=== PATIENT | female | born 1950 | race Caucasian/White ===

== ENCOUNTER 2023-04-02 06:55 | Observation (INO) ==
--- NOTE | 2023-03-09 15:41 | PAT Medication Instructions ---
Medication Instructions Date of Service March 09, 2023 Home Medications Lactobacillus acidophilus 10 billion cell capsule (Probiotic) 10,000 mmu cells PO QAM acetaminophen 650 mg tablet,extended release 650 mg PO Q8H calcium 500 mg tablet 500 mg PO QAM cholecalciferol (vitamin D3) 25 mcg (1,000 unit) tablet (Vitamin D3) 25 mcg PO QAM coQ10 (ubiquinol) 100 mg capsule 100 mg PO QAM fexofenadine 180 mg tablet 180 mg PO DAILY PRN gabapentin 100 mg capsule 100 mg PO UD levothyroxine 100 mcg tablet 100 mcg PO QAM meloxicam 15 mg tablet 15 mg PO QAM multivitamin 1 tab PO QAM omega-3 fatty acids 1,000 mg PO QAM omeprazole 40 mg capsule,delayed release 40 mg PO QAM pravastatin 20 mg tablet 20 mg PO HS vitamin A-vitamin C-vit E-min tablet 1 tab PO QPM Continue as directed gabapentin 100 mg capsule 100 mg PO UD ASK your surgeon for instructions meloxicam 15 mg tablet 15 mg PO QAM STOP taking 2 weeks before surgery (or as soon as possible if surgery is within 2 weeks) coQ10 (ubiquinol) 100 mg capsule 100 mg PO QAM omega-3 fatty acids 1,000 mg PO QAM vitamin A-vitamin C-vit E-min tablet 1 tab PO QPM DO NOT take the morning of surgery Lactobacillus acidophilus 10 billion cell capsule (Probiotic) 10,000 mmu cells PO QAM calcium 500 mg tablet 500 mg PO QAM cholecalciferol (vitamin D3) 25 mcg (1,000 unit) tablet (Vitamin D3) 25 mcg PO QAM fexofenadine 180 mg tablet 180 mg PO DAILY PRN multivitamin 1 tab PO QAM Take morning of surgery With a small sip of water, OTHERWISE NOTHING TO EAT OR DRINK AFTER MIDNIGHT: acetaminophen 650 mg tablet,extended release 650 mg PO Q8H(if needed) levothyroxine 100 mcg tablet 100 mcg PO QAM omeprazole 40 mg capsule,delayed release 40 mg PO QAM Take evening before surgery acetaminophen 650 mg tablet,extended release 650 mg PO Q8H(if needed) pravastatin 20 mg tablet 20 mg PO HS Other Notes If you have any questions please call us at [phone] or [phone] or [phone] or [phone]
--- NOTE | 2023-03-17 09:28 | Anesthesiology Consultation ---
Date of Service March 17, 2023 Assessment & Plan (1) Encounter for pre-operative examination: - COVID screening: Per assessment on 03/17: No known COVID-19 positive contacts or current COVID-19 related symptoms. Travel screen negative. Patient vaccinated. At surgeon discretion if preop Covid testing being done. * - Outpatient joint assessment: Pt currently scheduled for inpatient pathway. If surgeon requests review for outpatient joint pathway, patient is an acceptable candidate for outpatient joint program from anesthesia standpoint pending PCP EKG response/preop evaluation. - Preop EKG: iLBBB noted on preop EKG performed 03/17/23. Will need to write note to PCP. Awaiting PCP EKG response + surgeon-ordered preop evaluation (Dr. Cris Lang [facility], appt 03/18). Chart Review Chart Review: Patient seen in Pre Admission Testing Teaching & Discussion Pre-Anesthesia Teaching/Discussion Notes: Instructed NPO after midnight before surgery,except medications with 15 cc of water. Medication instructions provide d according to the PAT guidelines. History Surgery Operation Date: 04/02/23 07:00 Proposed Procedures p Right Total Hip Arthroplasty - Chacho Simeon MD Height/Weight Height: 5 ft 7 in Weight: 73.9 kg Allergies Allergy/AdvReac Type Severity Reaction Status Date / Time clindamycin Allergy Severe Chest Pain Verified 03/05/23 10:58 Medications Home Medications Medication Instructions Recorded Confirmed Last Taken Lactobacillus acidophilus 10 10,000 mmu cells PO QAM 03/05/23 03/05/23 Unknown billion cell capsule (Probiotic) acetaminophen 650 mg 650 mg PO Q8H 03/05/23 03/05/23 Unknown tablet,extended release calcium 500 mg tablet 500 mg PO QAM 03/05/23 03/05/23 Unknown cholecalciferol (vitamin D3) 25 25 mcg PO QAM 03/05/23 03/05/23 Unknown mcg (1,000 unit) tablet (Vitamin D3) coQ10 (ubiquinol) 100 mg capsule 100 mg PO QAM 03/05/23 03/05/23 Unknown fexofenadine 180 mg tablet 180 mg PO DAILY PRN Allergy 03/05/23 03/05/23 Unknown Symptoms gabapentin 100 mg capsule 100 mg PO UD 03/05/23 03/05/23 Unknown levothyroxine 100 mcg tablet 100 mcg PO QAM 03/05/23 03/05/23 Unknown meloxicam 15 mg tablet 15 mg PO QAM 03/05/23 03/05/23 Unknown multivitamin 1 tab PO QAM 03/05/23 03/05/23 Unknown omega-3 fatty acids 1,000 mg PO QAM 03/05/23 03/05/23 Unknown omeprazole 40 mg capsule,delayed 40 mg PO QAM 03/05/23 03/05/23 Unknown release pravastatin 20 mg tablet 20 mg PO HS 03/05/23 03/05/23 Unknown vitamin A-vitamin C-vit E-min 1 tab PO QPM 03/05/23 03/05/23 Unknown tablet Past Medical History Medical History GERD (gastroesophageal reflux disease) History of COVID-2019- "resolved" Hyperlipidemia Hypothyroidism Macular pucker Osteoarthritis Exercise / Class Metabolic Activity II 4-5 Yardwork/Stairs/Walk up hill (one FS (no CP, no SOB)) Past Family History Family History Other No family history of adverse response to anesthesia Past Surgical History Surgical History History of cataract surgery R/L History of section x2 History of colonoscopy History of total knee replacement left Past Anesthesia History No Hx of Anesthesia Complications and No Family Hx of Anesthesia Complications History of PONV No Hx of PONV and Hx of Motion Sickness Social History Smoking Status: Never smoker Do You Dip or Chew Tobacco: No Hx Alcohol Use: Yes Alcohol type: wine alcohol intake frequency: a few times a month substance use type: does not use Review of Systems Patient denies chest pain, shortness of breath, dyspnea on exertion, fever, chills, cough, wheezing, palpitations. Physical Exam Vital Signs VITALS BP 152/81 P 57 TEMP 97.6 SP02 98%RA RESP 16 PHYSICAL Full cervical extension range of motion. Full TMJ range of motion. TMD 3 finger breaths Mallampati Score 2 Dentition: intact, + crowns (molars) Lungs: clear throughout to auscultation Cardiac: regular rate and rhythm, no murmurs noted Spine: normal Carotid arteries: negative bruit Extremities: no LE edema Lab Results Anesthesia Preop Results Results Anesthesia Widget: WBC 5.96 K/ul (4.8-10.8) 03/17/23 Hgb 13.8 g/dl (12.0-16.0) 03/17/23 Hct 40.4 % (37.0-47.0) 03/17/23 Plt 195 K/uL (130-400) 03/17/23 Na 140 mmol/L (136-145) 03/17/23 K 4.6 mmol/L (3.5-5.1) 03/17/23 Cl 106 mmol/L (98-107) 03/17/23 CO2 28 mmol/L (21-32) 03/17/23 BUN 19 mg/dl (6-23) 03/17/23 Creat 0.64 mg/dl (0.6-1.2) 03/17/23 Glucose Level 91 mg/dl (70-99(Fasting)) 03/17/23 PT 11.0 Seconds (9.0-12.0) 03/17/23 PTT 23.5 Seconds (21.0-31.0) 03/17/23 INR 1.0 (0.9-1.1) 03/17/23 Urine Color Dark Yellow 03/17/23 Urine Appearance Clear (Clear) 03/17/23 Urine pH 5.0 (4.5-7.5) 03/17/23 Urine Specific [place] 1.040 (1.000-1.030) H 03/17/23 Urine Protein Negative (Negative) 03/17/23 Urine Glucose (UA) Negative (Negative) 03/17/23 Urine Ketones Trace (Negative) H 03/17/23 Urine Blood Negative (Negative) 03/17/23 Urine Nitrite Negative (Negative) 03/17/23 Urine Bilirubin Negative (Negative) 03/17/23 Urine Urobilinogen Negative (Negative) 03/17/23 Urine Leukocyte Esterase Negative (Negative) 03/17/23 Blood Type A Negative 03/17/23 Antibody Screen NEGATIVE 03/17/23 Testing Electrocardiogram Date: 03/17/23 SB at 56bpm. LAD. iLBBB. Moderate voltage criteria for LVH, may be normal variant. NS STA. Chest X-Ray Date: 03/17/23 FINDINGS: PA and lateral chest radiographs are obtained. No prior studies are available for comparison at the time of dictation. The cardiomediastinal silhouette is unremarkable. The lungs and pleural spaces are clear. There is no pneumothorax. The skeletal structures are osteopenic. The bony thorax appears intact. Degenerative change and scoliosis is seen in the spine. IMPRESSION: No active disease in the chest. Echocardiogram Date: 03/08/21 EF 55-59%. LV wall motion is normal. Grade I DD. No significant valvular disease. COVID-19 Risk Screen Screening Information COVID-19 Screen Date: 03/17/23 Exposure 21 Days Family/Household +COVID Last 21 Days: No Exposure 10 Days Any COVID Exposure Last 10 Days: No Symptoms Last 10 Days Experienced COVID Sx Last 10 Days: No + COVID 0-90 Days COVID + in Last 0-90 Days: No
[~2023-04-02 06:55] MED LIST: ACETAMINOPHEN 500 MG TAB PO SCH; BUPIVACAINE 0.5 % 5 MG/1 ML PF 10ML VIAL ONE; CeleBREX 200 MG CAP PO SCH; FAMOTIDINE 20 MG TAB PO SCH; LR 60ML/HR IV SCH; ROPIVACAINE 0.5% HCL/PF 150 MG, BUPIVACAINE 0.75% MPF 20 ML, EPINEPHrine 0.15 MG, Ketor... INFIL SCH; Scopolamine 1 MG TDSY TD SCH; TRANEXAMIC ACID 1,000 MG **IV Intra-op IV SCH; TRANEXAMIC ACID 1,000 MG **IV Pre-op IV SCH; ceFAZolin 2000MG 2,000 MG/15 ML SYR IV SCH; dexAMETHasone 4 MG TAB PO SCH; traMADol HCL 50 MG TABLET PO SCH
[2023-04-02] MEDS ORDERED: MIDAZOLAM HCL 1 MG/ML 2ML VIAL ONE (08:18)
[2023-04-02] MEDS ORDERED: fentaNYL citrate PF 100 MCG/2 ML VIAL ONE (08:18)
[2023-04-02] MEDS ORDERED: PROPOFOL IV EMULSION 10 MG/ML 20 ML VIAL IV ONE (08:20)
[2023-04-02] MEDS ORDERED: LIDOCAINE 2% 2 ML VIAL/AMP(20MG/ML) INFIL ONE (08:20)
[2023-04-02] MEDS ORDERED: ONDANSETRON INJ 2 MG/ML 2 ML VIAL IV PRN ×2 (08:26→10:58)
[2023-04-02] MEDS ORDERED: ATROPINE SULFATE 0.1 MG/ML 10ML SYR IV PRN (08:26)
[2023-04-02] MEDS ORDERED: fentaNYL citrate PF 100 MCG/2 ML VIAL IV PRN (08:26)
[2023-04-02] MEDS ORDERED: ePHEDrine sulfate 50 MG/ML AMP IV PRN (08:26)
--- NOTE | 2023-04-02 08:46 | History & Physical Bridge Note ---
Date of Service April 02, 2023 History & Physical Bridge Note I have examined the patient, reviewed the History & Physical and in the interval since the performance of the History & Physical I have noted the following changes of clinical significance: no changes noted
[2023-04-02] MEDS ORDERED: ORTHO JOINT ANESTHETIC ONE (09:06)
[2023-04-02] MEDS ORDERED: ePHEDrine sulfate 50 MG/ML SYR ONE (10:38)
--- NOTE | 2023-04-02 10:49 | Operative Report ---
Post Operative Report Pre & Post Diagnosis Operation Date: 04/02/23 09:00 Pre-Op Diagnosis: Right Hip Osteoarthritis Post-Op Diagnosis: Right Hip Osteoarthritis I identified the patient and participated in the time-out.: Yes Procedure Operation Date: 04/02/23 09:00 Actual Procedures p Right Total Hip Arthroplasty(Right) - Chacho Simeon MD Surgeon Chacho Simeon MD Associate Publisher LAZARO Jefferson PA-C. No resident or fellow was available to assist. Estimated Blood Loss 50 Findings Consistent with Post-Op Diagnosis Fluids 1000 cc crystalloid Specimens Right femoral head Anesthesia Type Spinal MAC Complications none Disposition Disposition: Recovery Room Indications 72-year-old female with right hip osteoarthritis refractory to conservative management. X-rays demonstrate joint space narrowing and marginal osteophyte formation with subchondral sclerosis. I had a long discussion with her about the risks and benefits of surgery, alternatives to surgery, and expected outcomes. After reviewing all these she elected to proceed with surgery. All questions were answered. Informed consent was signed. Description of Procedure Patient was identified in the preoperative holding area where the surgical site, Right hip, was marked. A spinal anesthetic was placed, then the patient was brought back to the main operating room, placed in the operating table and moved into the lateral decubitus position. Axillary roll was placed. All bony prominences were padded. Perioperative antibiotics and tranexamic acid 1 gram IV were administered. Operative extremity was prepped and draped in the normal sterile fashion. Prior to incision a multidisciplinary timeout was called. All in the room were in agreement. We began by making an incision for a posterior approach to the hip. We dissected down through subcutaneous tissues to the level of the fascia. The fascia was incised in line with the incision. [place] bow was placed. Fatty tissue was reflected posteriorly off the back of the greater trochanter to expose the piriformis and short external rotators of the hip. The piriformis and short external rotators were dissected off the posterior aspect of the hip. A box cut was made in the capsule. Inferior hip capsule was released off the femur. The femoral head was dislocated. The femoral neck cut was made at our preoperative template. The acetabulum was then exposed. The labrum was sharply excised. Contents of the cotyloid fossa were removed with electrocautery. We then began reaming at a size 8 mm less than our preoperative template. We reamed up by [address] the way up to a size 56 mm cup. This gave us good bleeding cancellus bone circumferentially. The acetabulum was then irrigated out and dried. The real [place] Gription cup was then impacted down into position with 45 degrees of lateral opening and 25 degrees of anteversion. A single cancellous bone screw was placed up into the ilium. Excellent fixation was obtained. A trial liner for a 5636 mm femoral head was then placed. Next we turned our attention to the femur. The lateral neck was removed with a box osteotome. Intramedullary guide was used followed by the lateralizing reamer. We then reamed up to a size 4 [place] stem. We then broached all the way up to a size 4. We began trialing with a standard offset neck and a +5 head. Hip was reduced. Leg lengths were symmetric. The hip was stable in extension and external rotation, and stable in the sleeper position. At 90 degrees of hip flexion the hip could be internally rotated [] degrees before levering out of the cup. I was very happy with the stability exam. Therefore the hip was dislocated and the femoral trial was removed. The acetabulum was re-exposed, and the trial liner was removed. An Altrx polyethylene liner for a 36 mm femoral head was then impacted into the shell. The locking mechanism was checked to ensure that it had engaged which it had. The femur was re-exposed. The femoral canal was irrigated and dried. The real size 4 standard offset [place] femoral stem was opened up. This was impacted down into position. It sat at the same level as the femoral trial. Therefore the 36 mm ceramic femoral head with +5 mm offset was opened up and gently impacted down onto the trunnion. The hip was atraumatically reduced. Another 1 gram of IV tranexamic acid was started prior to closure. The wound was irrigated out with sterile Betadine solution. The periarticular injection cocktail was then placed. The short external rotators, piriformis, and posterior capsule were repaired through drill holes in the greater trochanter using #2 Vicryl. The fascia was run with a looped #1 PDS. The subcutaneous layer was closed with #1 PDS. The dermal layer was closed with 2-0 Vicryl. Zip line was used for the skin followed by a Silverlon dressing. A compressive dressing was then placed. The patient was then rolled supine. Leg lengths were rechecked and were symmetric. An abduction pillow was placed. Sedation was lifted and the patient was transferred to the recovery room in stable condition. Summary of implants: Depuy [place] Gription Acetabular Shell Sector Cup, 56 mm outer diameter [place] Cancellous bone screw, 6.5 x 40 mm [place] hole eliminator [place] Altrx Polyethylene Acetabular Liner, Neutral, with a 36 mm inner diameter DePuy [place] Femoral stem with [place], 12/14 taper, size 4 standard offset 36 mm ceramic femoral head with +5 offset Postoperative course: Patient will be admitted to the hospital from the recovery room. Patient will be weightbearing as tolerated with posterior hip precautions. Aspirin for DVT prophylaxis I attest to the content of the Intraoperative Record and any orders documented therein. Any exceptions are noted below.
[2023-04-02] MEDS ORDERED: diphenhydrAMINE 50 MG/ML VIAL IV PRN (10:58)
[2023-04-02] MEDS ORDERED: ALUMINUM/MAGNESIUM SUSP 30 ML UDC PO PRN (10:58)
[2023-04-02] MEDS ORDERED: bisacodyL 10 MG SUPP PR PRN (10:58)
[2023-04-02] MEDS ORDERED: METOCLOPRAMIDE HCL INJ 5 MG/ML 2 ML VIAL IV PRN (10:58)
[2023-04-02] MEDS ORDERED: MAGNESIUM HYDROXIDE SUSP 30 ML UDC PO PRN (10:58)
[2023-04-02] MEDS ORDERED: NALOXONE HCL 0.4 MG/1 ML VIAL/CARP IV PRN (10:58)
[2023-04-02] MEDS ORDERED: oxyCODONE HCL IR 5 MG TAB (IMMEDIATE RELEASE) PO PRN (10:58)
[2023-04-02] MEDS ORDERED: HYDROmorphone INJ 0.5 MG/0.5 ML SYR IV PRN (10:58)
--- NOTE | 2023-04-02 10:58 | Operative Report ---
Post Operative Report Pre & Post Diagnosis Operation Date: 04/02/23 09:00 Pre-Op Diagnosis: Right Hip Osteoarthritis Post-Op Diagnosis: Right Hip Osteoarthritis I identified the patient and participated in the time-out.: Yes Procedure Operation Date: 04/02/23 09:00 Actual Procedures p Right Total Hip Arthroplasty(Right) - Chacho Simeon MD Surgeon Chacho Simeon MD [employer]el[employer] LAZARO Jefferson PA-C. No resident or fellow was available to assist. Estimated Blood Loss 50 Findings Consistent with Post-Op Diagnosis Specimens femoral head Description of Procedure I was present during the entire case assisting with positioning, prepping, draping, wound retraction, wound closure, dressing and abduction pillow placement. No fellow present. Please see Dr. Simeon procedure note for specifics of the case. I attest to the content of the Intraoperative Record and any orders documented therein. Any exceptions are noted below.
[2023-04-02] MEDS ORDERED: FEXOFENADINE HCL 180 MG TAB PO PRN (11:02)
[2023-04-02] MEDS: SODIUM CHLORIDE 0.9% 1000ML 1,000 ML IV SCH ×2 (13:10→21:56)
--- NOTE | 2023-04-02 13:26 | Anesthesiology Progress Note ---
Date of Service April 02, 2023 Anesthesia Post Procedure Vital Signs Vital Signs: Temp Pulse Pulse Resp BP Pulse Ox O2 Del Method 04/02/23 13:00 98.1 F 62 18 136/70 95 Room Air 04/02/23 12:30 98.8 F 57 L 21 115/64 99 Room Air 04/02/23 12:00 57 L 10 L 108/57 L 97 Room Air 04/02/23 11:50 57 L 14 128/66 94 Room Air 04/02/23 11:40 53 L 14 109/61 94 Room Air 04/02/23 11:30 60 21 121/66 93 Room Air 04/02/23 11:15 58 L 17 117/59 L 92 Room Air 04/02/23 11:05 59 L 19 110/56 L 92 Room Air 04/02/23 10:55 97.5 F L 60 15 100/53 L 93 Room Air 04/02/23 07:34 97.9 F 63 20 126/74 93 Room Air Pain Intensity Right Hip: Pain Intensity: 7 Transfer of Care Handoff Completed per policy Notes Mental Status: alert / awake / arousable and participated in evaluation Patient Amnestic to Procedure: Yes Nausea / Vomiting: adequately controlled Pain: adequately controlled Airway Patency, RR, SpO2: stable & adequate BP & HR: stable & adequate Hydration State: stable & adequate Neuraxial Anesthesia: was administered and sensory block is resolving Anesthetic Complications: no major complications apparent and Pt Satisfied with anesthetic care
--- NOTE | 2023-04-02 13:40 | XRay Report ---
XR pelvis 1-2V routine CLINICAL HISTORY: Postoperative evaluation. COMPARISON: Pelvis radiograph March 17, 2023. FINDINGS: Alignment of the total right hip arthroplasty is anatomic. There is no periprosthetic frac ture. No unexpected radiopaque foreign bodies are present. There is an acetabular screw. IMPRESSION: Expected findings following total right hip arthroplasty. ACT 112: Negative or not required by law. Electronically signed by: Jayesh Darnell M.D. 04/02/2023 1:38 PM
[2023-04-02] MEDS: ACETAMINOPHEN 500 MG TAB PO SCH ×2 (14:11→21:00)
[2023-04-02] MEDS: KETOROLAC TROMETHAMINE 15 MG/ML VIAL IV SCH ×2 (14:11→19:52)
[2023-04-02] MEDS: Scopolamine CHECK PATCH PLACEMENT SCH ×2 (16:30→23:12)
[2023-04-02] MEDS: ceFAZolin 2000MG 2,000 MG/15 ML SYR IV SCH (16:30)
[2023-04-02] MEDS ORDERED: TRANEXAMIC ACID / 0.7% NACL 1,000 MG/100 ML BAG IV SCH (17:00)
[2023-04-02] MEDS: DOCUSATE SODIUM 100 MG CAP PO SCH (19:51)
[2023-04-02] MEDS ORDERED: VITAMIN A VITAMIN C VIT E MIN PO SCH (21:00)
[2023-04-02] MEDS ORDERED: GABAPENTIN 100 MG CAP PO SCH (21:00)
[2023-04-02] MEDS ORDERED: SENNA 8.6 MG TAB PO SCH (21:00)
[2023-04-02] MEDS ORDERED: PRAVASTATIN SOD 20 MG TAB PO SCH (21:00)
[2023-04-03] MEDS: ceFAZolin 2000MG 2,000 MG/15 ML SYR IV SCH (01:26)
[2023-04-03] MEDS: KETOROLAC TROMETHAMINE 15 MG/ML VIAL IV SCH ×2 (01:26→09:08)
[2023-04-03] MEDS: ACETAMINOPHEN 500 MG TAB PO SCH (06:21)
[2023-04-03] MEDS ORDERED: LEVOTHYROXINE SODIUM 100 MCG TABLET PO SCH (06:30)
[2023-04-03 06:38] LABS: BUN Creatinine Ratio 20.6 (10-20); Calcium 8.8 mg/dl (8.6-10.3); Creatinine Clr Calc Pharmacy 80.8 ml/min; Est GFR (African American) 105.3 ml/min; Est GFR (Non-African American) 90.9 ml/min; Potassium 4.5 mmol/L (3.5-5.1)
[2023-04-03] MEDS ORDERED: dexAMETHasone 4 MG TAB PO SCH (08:00)
[2023-04-03] MEDS ORDERED: MULTIVITAMIN TAB PO SCH (09:00)
[2023-04-03] MEDS ORDERED: OMEGA-3 (PURIFIED FISH OIL) 1 GM CAP PO SCH (09:00)
[2023-04-03] MEDS ORDERED: ADVANCED PROBIOTIC 1250 MG CAPSULE PO SCH (09:00)
[2023-04-03] MEDS ORDERED: GABAPENTIN 100 MG CAP PO SCH (09:00)
[2023-04-03] MEDS ORDERED: NON-FORMULARY MEDICATION (Multivitamin Tablet) PO SCH (09:00)
[2023-04-03] MEDS ORDERED: ASPIRIN 81 MG ECTAB PO SCH (09:00)
[2023-04-03] MEDS ORDERED: MELOXICAM 7.5 MG TAB PO SCH (09:00)
[2023-04-03] MEDS ORDERED: PANTOprazole 40 MG TAB PO SCH (09:00)
[2023-04-03] MEDS ORDERED: CALCIUM 600MG + VIT D 400 IU TAB PO SCH (09:00)
[2023-04-03] MEDS ORDERED: CHOLECALCIFEROL 1,000 UNITS 25 MCG TAB PO SCH (09:00)
[2023-04-03] MEDS ORDERED: NON-FORMULARY MEDICATION (Coq10 (Ubiquinol) 100 mg Capsule) PO SCH (09:00)
[2023-04-03] MEDS: Scopolamine CHECK PATCH PLACEMENT SCH (09:04)
[2023-04-03] MEDS: DOCUSATE SODIUM 100 MG CAP PO SCH (09:07)
--- NOTE | 2023-04-03 09:29 | Orthopedic Progress Note ---
Date of Service April 03, 2023 Assessment & Plan (1) S/P total hip arthroplasty: Plan: Total hip precautions were reviewed Weightbearing as tolerated with walker assistance Abduction pillow use x6 weeks postoperatively DVT prophylaxis with aspirin and SAÚL stockings Pain control with p.o. medication prescribed Keep Silverlon dressing in place until 2-week follow-up Ice to easy wrap PT/OT Plan is to discharge home later this morning with in-home physical therapy for the first 2 weeks Follow-up at [facility] orthopedics as previously scheduled With questions contact our clinic at [phone] Admission and Anticipated Discharge Date Admission Date: April 02, 2023 Subjective This 72-year-old female is day 1 status post right total hip arthroplasty. She states she is doing very well today. She states that yesterday she had 2 episodes of nausea and vomiting but has no complaint today. She states her hip pain is well controlled with p.o. pain medication she has been given. Currently she denies any chest pain, shortness of breath, fever, chills, sweats, numbness or tingling in her right lower extremity. She states she has been able to transition from her bed to the bathroom with only minimal assistance. Patient is hopeful that she will be able to be discharged home later this morning. Review of Systems Review of Systems: All systems reviewed & are unremarkable except as noted in Subjective Physical Exam Physical Exam: Right hip: Outer dressing was removed. Silverlon is clean dry and intact and left in place. Patient is able to form an active straight leg raise test. She is able to actively dorsi and plantarflex her foot without issue. She tolerates logroll testing. She only has some slight tension with passive hip flexion to 90 degrees as well as with light passive internal and external hip rotation. Her quad strength is 4 out of 5. She is neurovascular intact in right lower extremity. Results & Data Vital Signs (Past 12 Hours) Vital Signs Temp Pulse Pulse Resp BP Pulse Ox O2 Del Method 04/03/23 06:26 36.4 C L 74 16 107/78 96 Room Air 04/03/23 03:51 36.6 C 64 16 128/69 97 Room Air 04/02/23 23:29 36.7 C 69 16 104/65 96 Room Air Diagnostic Findings Laboratory Results Sodium 139 mmol/L (136-145) 04/03/23 05:56 Potassium 4.5 mmol/L (3.5-5.1) 04/03/23 05:56 Chloride 109 mmol/L (98-107) H 04/03/23 05:56 Carbon Dioxide 24 mmol/L (21-32) 04/03/23 05:56 Anion Gap 6 (3-11) 04/03/23 05:56 BUN 13 mg/dl (6-23) 04/03/23 05:56 Creatinine 0.63 mg/dl (0.6-1.2) 04/03/23 05:56 Est Cr Clr Drug Dosing 80.8 ml/min 04/03/23 05:56 Est GFR ( Amer) 105.3 ml/min 04/03/23 05:56 Est GFR (Non-Af Amer) 90.9 ml/min 04/03/23 05:56 BUN/Creatinine Ratio 20.6 (10-20) H 04/03/23 05:56 Glucose 120 mg/dl (70-99(Fasting)) H 04/03/23 05:56 Calcium 8.8 mg/dl (8.6-10.3) 04/03/23 05:56 Impressions Pelvis X-Ray 04/02/23 10:58 XR pelvis 1-2V routine CLINICAL HISTORY: Postoperative evaluation. COMPARISON: Pelvis radiograph March 17, 2023. FINDINGS: Alignment of the total right hip arthroplasty is anatomic. There is no periprosthetic fracture. No unexpected radiopaque foreign bodies are present. There is an acetabular screw. IMPRESSION: Expected findings following total right hip arthroplasty. ACT 112: Negative or not required by law. Electronically signed by: Jayesh Darnell M.D. 04/02/2023 1:38 PM
--- NOTE | 2023-04-03 09:33 | Discharge Summary ---
Date of Service April 03, 2023 Admission HPI Per Admitting Provider HPI: Patient is a 72-year-old female presenting today for preoperative history and physical prior to her going a right total hip arthroplasty with Dr. Simeon on 04/02 at [facility]. The patient has been dealing with hip pain for a while and is failed conservative treatment. She recently had a cortisone injection into her left hip and said that that helped with some of the thigh pain. She denies any major changes or any new injury since her last visit. She denies any history of heart attack, stroke or blood clots. She says she does have family history of heart attack and stroke with her parents but that is when they were in their 90s. She does have high cholesterol that is controlled with a statin. She has hypothyroidism and is on levothyroxine for that. She says that she gets that checked yearly and she has had no issues with that. She denies any history of smoking. All the risks and benefits of surgery were discussed with the patient and she is elected to proceed with surgical intervention Admission Exam Per Admitting Provider Physical Exam Vitals & Measurements T: 36.2 C HR: 66 (Monitored) BP: 122/80 SpO2: 97% HT: 172 cm WT: 72 kg WT: 72.000 kg (Dosing) BMI: 24.34 General: Pt is well nourished, seated on the exam table AA&O, in NAD, calm and cooperative during exam HENT: Nontraumatic, no gross deformity, hearing and vision grossly in-tact, PERRL Heart: +S1, +S2, RRR, no murmurs appreciated Lungs: CTABL, no wheezing appreciated Numbness on anterior and medial thighs, b/l Left ROM: Flexion 105 , with reproduction of symptoms / ER 45 / IR 20 Right ROM: Flexion 100 / ER 45 / IR 10 Positive impingement b/l Positive Scour test b/l Positive Stinchfield test on right [1] Pain with leg roll Principal Diagnosis Right hip osteoarthritis Discharge Exam Right hip: Outer dressing was removed. Silverlon is clean dry and intact and left in place. Patient is able to form an active straight leg raise test. She is able to actively dorsi and plantarflex her foot without issue. She tolerates logroll testing. She only has some slight tension with passive hip flexion to 90 degrees as well as with light passive internal and external hip rotation. Her quad strength is 4 out of 5. She is neurovascular intact in right lower extremity. Discharge Data Allergies Allergy/AdvReac Type Severity Reaction Status Date / Time clindamycin Allergy Severe Chest Pain Verified 04/02/23 07:29 Procedures Performed Operation Date: 04/02/23 09:00 Actual Procedures p Right Total Hip Arthroplasty(Right) - Chacho Simeon MD Hospital Course (1) S/P total hip arthroplasty: Patient essentially had an uneventful overnight stay except for few episodes of nausea and vomiting that are much better today. She is very pleased with the results of her hip surgery. We will plan on discharging her home later this morning after she completes physical therapy and Occupational Therapy evaluations. She is set to begin in-home physical therapy later this weekend. Total hip precautions were reviewed Weightbearing as tolerated with walker assistance Abduction pillow use x6 weeks postoperatively DVT prophylaxis with aspirin and SAÚL stockings Pain control with p.o. medication prescribed Keep Silverlon dressing in place until 2-week follow-up Ice to easy wrap PT/OT Plan is to discharge home later this morning with in-home physical therapy for the first 2 weeks Follow-up at [facility] orthopedics as previously scheduled With questions contact our clinic at [phone] Total Time Total Time Spent Total Time Spent (In Minutes): 25 mins Discharge Plan Discharge Items Patient Disposition: Home - Home Health Services Reason For Visit: Right Hip Osteoarthritis Discharge Diagnosis: Right Hip osteoarthritis Activity: As commented below Bathing: Keep incision dry Bathing Comment: may shower tomorrow Sexual Activity: Wait until after follow-up appointment Exercise/Sports: Wait until after follow-up appointment Driving/Machine Use: No driving until cleared by orthopedic physician Weightbearing: Right weightbearing Weightbearing Comment: as tolerated with walker assistance Non-emergency contact: Surgeon Call non-emergency contact if: you have any medication questions, your pain is not controlled, your temperature is above 101.5, your wound has increased drainage and your wound pain has increased Follow-up/Referrals: Cris Lang DO [Primary Care Provider] - Diet: Regular Addtl Attending Provider Instructions: Post-operative Instructions Dear Patient and Family/Friends, Before you are discharged from the hospital, it is important to know what to expect when you get home after surgery. To that end, we have created this sheet of discharge instructions which covers many commonly asked questions. Make sure you go through this sheet in its entirety with your nurse before you are discharged. Please note that we will go over the specifics of your surgery and recovery when you return for your first post-operative visit. Sincerely, Dr. Simeon Medications 1. Oxycodone 5 mg: Take 1-2 tabs every 4-6 hours as needed for postoperative pain control. A prescription for this medication will be sent to your pharmacy. 2. Meloxicam 15 mg: Resume your daily meloxicam tablet for postoperative pain and inflammation relief. If she needed additional refill please contact our clinic. 3. Aspirin 81 mg: Take 1 tab twice daily for the first 30 days postoperatively for blood clot prevention. Please purchase this medication. 4. Extra strength Tylenol 500 mg: Take 2 tablets every 6-8 hours as needed for additional pain relief. Please purchase. Pain Expect to be in a fair amount of pain after surgery. Remember, our goal is not to eliminate your pain, but to make it tolerable. It is a good idea to stay ahead of your pain by taking the medications you were prescribed once you get home. Typically, the pain starts improving 3-7 days after surgery. You should start weaning off the narcotic pain medication (oxycodone, hydrocodone, hydromorphone, morphine) as soon as your pain improves. Please call our office if your pain is not adequately controlled. Ice Ice your operative site at least 5 times a day for 15-30 minutes at a time. Make sure you have a thin cloth between the ice or cooling unit and your skin to prevent [place] bite. This is especially important if you received a nerve block. Continue icing your operative site for the first 5-7 days after surgery, then as needed. Diet/Nausea/Vomiting Start by drinking clear liquids and eating crackers. If you can tolerate this, then you may resume your normal diet. If you feel nauseated or vomit, take Zofran/ondansetron (if prescribed). Please call our office if you have intractable nausea or vomiting, or, if after hours, you may go to the Emergency Room for help. Constipation Constipation is a common side effect of narcotic pain medication. If you have not had a bowel movement within 2 days after surgery, we recommend purchasing an over the counter laxative such as Milk of Magnesia, Dulcolax, or Miralax from a local pharmacy, and taking it as instructed. Call our clinic if any questions. Slings and Braces If you were placed in a sling or brace, it must be worn at all times, including sleep. You may remove your sling or brace for physical therapy, home exercises, and showering. The length of time you will be in your brace and range of motion restrictions depends on what surgery you had; these details will be reviewed at your first post-operative appointment. Nerve block The anesthesia team sometimes places a nerve block to help with post-operative pain control. This results in significant numbness and inability to move the extremity. The nerve block usually wears off in 8-12 hours, but sometimes can last up to 24 hours. Please call our office if you are still unable to move your extremity after 24 hours, unless you received a pain pump to take home. Nerve blocks typically wear off quickly, so start taking pain medication as soon as you start feeling soreness near your surgical site. Weight bearing and Range of Motion. Do not bear any weight through your operative extremity immediately after surgery. If you had upper extremity surgery, do not lift anything with that arm. If you are in a knee brace, keep it locked in place until your follow-up. We will discuss your weight bearing, range of motion, and lifting restrictions in detail at your first post-operative appointment. Continuous Passive Motion (CPM) Machine If you were prescribed a CPM machine, it will start after your first post- operative appointment, at which time we will give you instructions on the range of motion settings and duration of treatment Physical therapy You will be given a prescription for physical therapy or occupational therapy at your first post-operative appointment. Typically, patients start therapy within 1 week of surgery Wound care and showering We will inspect your wound at your first post-operative visit, and may do a dressing change at that time. Most patients will be in a water-proof dressing that is removed 14 days after surgery. It is normal to see some dried blood on the dressing. Do not remove your dressing, paper strips or sutures yourself unless you are given permission. Showering is allowed the day after surgery. Do not scrub or remove any dressings. The wound should not be submerged underwater (i.e. in a bathtub or pool) until 4 weeks after surgery SAÚL stockings If you were given white stockings, these are to be worn at all times except to shower (on both legs) for the first 2 weeks after surgery. Driving You may not drive while taking narcotic pain medication or while in a cast, splint, sling or brace. You, the patient, need to make the final determination about when you are safe to drive, however, the earliest you may consider driving after surgery is below: Hand/Wrist/Elbow Surgery: 3 days Shoulder Surgery: 2 weeks Hip,/Knee/Ankle Surgery: 4 weeks Fracture repair: 6 weeks Return to Work Your return to work depends on what surgery was done and what type of work you do. Please bring any paperwork your employer needs completed to your first post-operative visit. Also, bring a description of your job duties, as this helps us to understand what risks you may face at work. Travel Avoid long distance travel (greater than 1 hour) in airplanes and cars for the first 6 weeks after surgery. If you must travel, you need to have a Doppler ultrasound done before you travel to rule out a blood clot in your legs. Follow-up You should have a follow-up appointment already scheduled 1-2 days after surgery. If not, please contact our office to make this appointment before you leave the hospital. When to call the office It is normal to have swelling and bruising in the limb that was operated on. This will improve with time. It is also normal to have fevers for the first 2 days after surgery. Reasons you should call your doctor include: Uncontrolled pain; Nausea, vomiting, or constipation that does not improve with medication; Fevers over 101.5, chills, sweats; Drainage or bleeding from the wound; Foul odor; Spreading areas of redness; Any other concerns Pending Studies at Discharge: No Stand-Alone Forms: [facility], Smoking Cessation Medications and DC Order Prescriptions: New acetaminophen [Tylenol Extra Strength] 500 mg Tablet 1,000 mg PO Q8 30 Days Qty: 180 0RF aspirin 81 mg Tablet,Delayed Release (Dr/Ec) 81 mg PO BID 30 Days Qty: 60 0RF oxycodone 5 mg Tablet 5 - 10 mg PO Q4H PRN (Reason: Post op pain control) Qty: 28 0RF Continued multivitamin Tablet 1 tab PO QAM meloxicam 15 mg Tablet 15 mg PO QAM calcium 500 mg Tablet 500 mg PO QAM fexofenadine 180 mg Tablet 180 mg PO DAILY PRN (Reason: Allergy Symptoms) omeprazole 40 mg Capsule,Delayed Release(Dr/Ec) 40 mg PO QAM acetaminophen 650 mg Tablet Extended Release 650 mg PO Q8H levothyroxine 100 mcg Tablet 100 mcg PO QAM gabapentin 100 mg Capsule 100 mg PO UD Patient Comments: 1 cap qam/2 cap qpm Ocutabs Tablet 1 tab PO QPM omega-3 fatty acids Capsule 1,000 mg PO QAM cholecalciferol (vitamin D3) [Vitamin D3] 25 mcg (1,000 unit) Tablet 25 mcg PO QAM coQ10 (ubiquinol) 100 mg Capsule 100 mg PO QAM Probiotic 10 billion cell Capsule 10,000 mmu cells PO QAM pravastatin 20 mg Tablet 20 mg PO HS Admission Data Admit Date/Time: 04/02/23 10:58 Attending Provider: Chacho Simeon Admit Provider: Chacho Simeon Primary Care Provider: Cris Lang Other Providers: [email or web address]
[2023-04-03 09:46] LABS: Basophils # (auto) 0.01 K/uL (0-0.2); Basophils % (auto) 0.1 %; Hemoglobin 11.2 g/dl (12.0-16.0); Immature Granulocytes # (auto) 0.06 K/uL (0.01-0.20); Immature Granulocytes % (auto) 0.5 %; Lymphocytes % (auto) 4.9 %; Mean Corpuscular Hemoglobin 32.5 pg (25.0-34.0); Mean Corpuscular Volume 92.8 fL (80.0-100.0); Monocytes # (auto) 0.84 K/uL (0.11-0.59); Monocytes % (auto) 6.9 %; Neutrophils # (auto) 10.64 K/uL (1.40-6.50); Neutrophils % (auto) 87.6 %; Platelet Count 174 K/uL (130-400); RDW Coefficient of Variation 11.7 % (11.5-14.5); RDW Standard Deviation 39.4 fL (36.4-46.3); Red Blood Count 3.45 M/uL (4.20-5.40); White Blood Count 12.15 K/ul (4.8-10.8)
== END 2023-04-03 11:06 | disposition home health service (06) ==
LOC: 3E 06:55 → ASU 06:55

== ENCOUNTER 2023-12-31 05:11 | Observation (INO) ==
--- NOTE | 2023-12-16 16:52 | History & Physical Report ---
Date of Service December 16, 2023 Assessment & Plan (1) Osteoarthritis of left hip: Plan: PRE-OP Diagnosis: Left hip osteoarthritis Planned Procedure: Left total hip arthroplasty Plan: Patient is scheduled to undergo this procedure at the [facility] with a 23-hour observation admission with Dr. Simeon on December. Risks and complications of the procedure such as: Infection, bleeding, pain, scarring, nerve blood vessel damage, weakness, wound problems, stiffness, incomplete relief of symptoms, hardware failure, hardware loosening, wear, fracture, tendon or ligament injury, dislocation, leg length inequality, blood clots, Embolism, heart attack, stroke and were explained to the patient at her visit today. Informed consent to perform the procedure was obtained. Patient also understands risks of proceeding with surgical intervention during the COVID-19 pandemic. Currently she is asymptomatic and has not been in contact with anyone positive for the virus recently. Patient will need to obtain updated CBC with differential, complete metabolic panel, PT/INR, urinalysis, urine culture and sensitivity, and a nasal culture for MRSA. Patient's EKG and blood type and screen are all up-to-date. Patient will also need preoperative medical clearance from their primary care provider Cheyanne James. She has this appointment scheduled for December 21 at 9:20 AM. Patient states that she plans on doing in-home physical therapy for the first 1 to 2 weeks postoperatively with [facility]. Patient states that she will most likely elect to do outpatient physical therapy at [place] [facility]. Patient has a walker, raised toilet seat, shower chair and a hip kit. During today's visit we reviewed the total hip packet as well as precautions. We discussed discharge planning from the hospital. We discussed lectures offered by [facility] in regards to joint replacement surgery via Zoom. Patient states that she took part in this before her right total hip arthroplasty and does not feel that she needs to partake in again. I advised the patient that upon discharge from hospital we will prescribe a narcotic pain medication and anti-inflammatory. Patient will also be on an 81 mg aspirin twice daily for blood clot prevention. Patient will be scheduled for 2-week postoperative follow-up visit with myself on January 12. This chart was completed utilizing [employer] voice recognition software. Grammatical errors, random word insertions, pronoun errors, and in complete sentences are an occasional consequence of the system. Any questions or concerns about the content, text, or information contained within the body of this dictation should be addressed directly to the physician for clarification. History of Present Illness Chief Complaint: Chief Complaint: Left hip pain Primary Care Provider: Cris Lang DO History of Present Illness (including history relevant to procedure): This 73-year-old female presents the clinic today for preoperative history and physical. Patient states that she had her right hip replaced by Dr. Cailin ortega in March 2023. She states that she has had significant left hip pain since . She states she is unable to sleep comfortably due to the pain. She takes Celebrex on a daily basis. She states that she has had 2 corticosteroid injections with only mild relief of her pain. She states she was recently switched to meloxicam and has been using [id number] extra strength Tylenol. She states that she is starting to notice a significant gait disturbance and referred pain to her left knee which was previously replaced. Patient is likely to proceed with surgical intervention at this time. Review Of Systems: A 12 point review of systems is performed and is unremarkable except for those things stated in the HPI and past medical history. Past Medical History: Problems: Pre-op testing Osteoarthritis of left hip Low back pain Sleep apnea Hypercholesterolemia Hypothyroidism GERD Procedure History Procedure Procedure Date Comments Knee replacement - left CE - Cataract extraction - bilateral section x 2 Right total hip arthroplasty Allergies and Sensitivities: clindamycin(chest tightness) Current Home Meds: (Last Updated 12/15 10:09) acetaminophen (Tylenol Arthritis Caplet) bifidobacterium-lactobacillus (Probiotic Formula) calcium acetate cholecalciferol (Vitamin D3) levothyroxine lutein meloxicam multivitamin 1 tab PO Daily omega-3 polyunsaturated fatty acids (Fish Oil oral capsule) omeprazole pravastatin ubiquinone (Co Q-10) Allergies Allergy/AdvReac Type Severity Reaction Status Date / Time clindamycin Allergy Severe Chest Pain Verified 12/15/23 08:28 Home Medications Medication Instructions Recorded Confirmed Type Lactobacillus acidophilus 10 10,000 mmu cells PO QAM 03/05/23 12/15/23 History billion cell capsule (Probiotic) calcium 500 mg tablet 500 mg PO QAM 03/05/23 12/15/23 History cholecalciferol (vitamin D3) 25 25 mcg PO QAM 03/05/23 12/15/23 History mcg (1,000 unit) tablet (Vitamin D3) coQ10 (ubiquinol) 100 mg capsule 100 mg PO QAM 03/05/23 12/15/23 History fexofenadine 180 mg tablet 180 mg PO DAILY PRN Allergy 03/05/23 12/15/23 History Symptoms levothyroxine 100 mcg tablet 100 mcg PO QAM 03/05/23 12/15/23 History meloxicam 15 mg tablet 15 mg PO QAM 03/05/23 12/15/23 History multivitamin 1 tab PO QAM 03/05/23 12/15/23 History omega-3 fatty acids 1,000 mg PO QAM 03/05/23 12/15/23 History omeprazole 40 mg capsule,delayed 40 mg PO QAM 03/05/23 12/15/23 History release pravastatin 20 mg tablet 20 mg PO HS 03/05/23 12/15/23 History acetaminophen 650 mg 1,300 mg PO Q8H 12/15/23 12/15/23 History tablet,extended release lutein 6 mg tablet 6 mg PO QAM 12/15/23 12/15/23 History Past Med/Surg History Medical History Seasonal allergies Osteoarthritis Macular pucker lt eye GERD (gastroesophageal reflux disease) Hypothyroidism Hyperlipidemia History of COVID-19 (~2019) resolved Surgical History History of total right hip arthroplasty (~03/2023) Hx of bilateral cataract extraction History of section x2 History of total knee replacement left History of colonoscopy Family History Other No family history of adverse response to anesthesia Social History Smoking Status: Never smoker Second Hand Exposure: No; Do You Dip or Chew Tobacco: No; Hx Alcohol Use: Yes Alcohol type: wine Hx Substance Use: No Preferred Language: [place] Communication Ability: Effective Architecture Department Chair Required: No Beliefs That Will Affect Care: None Current Living Situation: Spouse Feels Safe at Home: Yes Assistive Devices: Glasses and Hearing Aid - Bilateral Review of Systems All systems reviewed & are unremarkable except as noted in Subjective Physical Exam Physical Exam: Physical Exam: (relevant to the procedure, including heart and lung evaluation) General: Alert and oriented x 3 with proper grooming and hygiene Eyes: Pupils are equal reactive to light with accommodation. Extraocular movements are intact Throat: Posterior oropharynx is clear with absence of edema, erythema or exudate. Dentition is appropriate Cardiac: Regular rate and rhythm with no murmurs or gallops appreciated Lungs: Clear to auscultation throughout with no wheezing, rales or rhonchi Abdomen: Mildly obese, nondistended, nontender with NABS Extremities: Left hip; flexion is limited to 115 degrees, internal rotation to 5 degrees and external rotation to 30 degrees. Logroll tests positive. Stinchfield test positive. Straight leg raise test positive. Scour and impingement tests are both positive. Patient experiences tenderness to palpation over her groin. Neuro: Cranial nerves II through XII are intact no motor or sensory deficit Skin: Normal in appearance with no open skin areas or discharge Results & Data Diagnostic Findings Studies (relevant to the procedure): I obtained and personally interpreted AP pelvis, false profile, and crosstable lateral views of the left hip which shows severe joint space narrowing, central pattern arthritis which is unchanged from films done prior.
--- NOTE | 2023-12-22 09:15 | Anesthesiology Consultation ---
Date of Service December 22, 2023 Assessment & Plan (1) Encounter for pre-operative examination: - check type and screen STAT am DOS. - Outpatient joint assessment: Patient is currently scheduled for inpatient pathway. If re-evaluated and patient/surgeon requests outpatient pathway, chris cates is acceptable candidate for outpatient joint program from anesthesia standpoint pending surgeon's office assessment of pt motivation/support/completion of same day joint program preop requirements. Chart Review Chart Review: Acceptable Risk for Surgery and Patient NOT seen in Pre Admission Testing History Surgery Operation Date: 12/31/23 07:00 Proposed Procedures p Left Total Hip Arthroplasty - Chacho Simeon MD Height/Weight Height: 5 ft 7 in Weight: 72.575 kg Allergies Allergy/AdvReac Type Severity Reaction Status Date / Time clindamycin Allergy Severe Chest Pain Verified 12/15/23 08:28 Medications Home Medications Medication Instructions Recorded Confirmed Last Taken Lactobacillus acidophilus 10 10,000 mmu cells PO QAM 03/05/23 12/15/23 03/18/23 08:00 billion cell capsule (Probiotic) calcium 500 mg tablet 500 mg PO QAM 03/05/23 12/15/23 03/18/23 08:00 cholecalciferol (vitamin D3) 25 25 mcg PO QAM 03/05/23 12/15/23 03/18/23 08:00 mcg (1,000 unit) tablet (Vitamin D3) coQ10 (ubiquinol) 100 mg capsule 100 mg PO QAM 03/05/23 12/15/23 03/18/23 08:00 fexofenadine 180 mg tablet 180 mg PO DAILY PRN Allergy 03/05/23 12/15/23 Unknown Symptoms levothyroxine 100 mcg tablet 100 mcg PO QAM 03/05/23 12/15/23 04/02/23 03:00 meloxicam 15 mg tablet 15 mg PO QAM 03/05/23 12/15/23 03/18/23 08:00 multivitamin 1 tab PO QAM 03/05/23 12/15/23 03/18/23 08:00 omega-3 fatty acids 1,000 mg PO QAM 03/05/23 12/15/23 03/18/23 08:00 omeprazole 40 mg capsule,delayed 40 mg PO QAM 03/05/23 12/15/23 04/01/23 08:00 release pravastatin 20 mg tablet 20 mg PO HS 03/05/23 12/15/23 04/01/23 20:00 acetaminophen 650 mg 1,300 mg PO Q8H 12/15/23 12/15/23 Unknown tablet,extended release lutein 6 mg tablet 6 mg PO QAM 12/15/23 12/15/23 Unknown Past Medical History Medical History (Updated 12/22/23 @ 09:11 by Tatyana Kirkland PA-C) GERD (gastroesophageal reflux disease) History of COVID-19 (~2019) resolved Hyperlipidemia Hypothyroidism Macular pucker lt eye Seasonal allergies Past Family History Family History Other No family history of adverse response to anesthesia Past Surgical History Surgical History History of section x2 History of colonoscopy History of total knee replacement left History of total right hip arthroplasty (~03/2023) Hx of bilateral cataract extraction Social History Smoking Status: Never smoker Do You Dip or Chew Tobacco: No Hx Alcohol Use: Yes Alcohol type: wine alcohol intake frequency: holidays/special occasions only Hx Substance Use: No substance use type: does not use Lab Results Anesthesia Preop Results Results Anesthesia Widget: WBC 5.57 K/ul (4.8-10.8) 12/16/23 Hgb 13.3 g/dl (12.0-16.0) 12/16/23 Hct 38.5 % (37.0-47.0) 12/16/23 Plt 206 K/uL (130-400) 12/16/23 Na 138 mmol/L (136-145) 12/16/23 K 4.7 mmol/L (3.5-5.1) 12/16/23 Cl 106 mmol/L (98-107) 12/16/23 CO2 28 mmol/L (21-32) 12/16/23 BUN 20 mg/dl (6-23) 12/16/23 Creat 0.64 mg/dl (0.6-1.2) 12/16/23 Glucose Level 86 mg/dl (70-99(Fasting)) 12/16/23 PT 10.9 Seconds (9.0-12.0) 12/16/23 INR 1.0 (0.9-1.1) 12/16/23 Urine Color Yellow 12/16/23 Urine Appearance Clear (Clear) 12/16/23 Urine pH 5.5 (4.5-7.5) 12/16/23 Urine Specific [place] 1.036 (1.000-1.030) H 12/16/23 Urine Protein Negative (Negative) 12/16/23 Urine Glucose (UA) Negative (Negative) 12/16/23 Urine Ketones Trace (Negative) H 12/16/23 Urine Blood Negative (Negative) 12/16/23 Urine Nitrite Negative (Negative) 12/16/23 Urine Bilirubin Negative (Negative) 12/16/23 Urine Urobilinogen Negative (Negative) 12/16/23 Urine Leukocyte Esterase Trace (Negative) H 12/16/23 Urine WBC (Auto) 0-5 /hpf (0-5) 12/16/23 Urine RBC (Auto) 6-10 /hpf (0-2) H 12/16/23 Urine Hyaline Casts (Auto) 0-2 /lpf (0-2) 12/16/23 Urine Epithelial Cells (Auto) 0-2 /hpf (0-2) 12/16/23 Urine Bacteria (Auto) None Seen (None Seen) 12/16/23 Testing Electrocardiogram Date: 03/17/23 Sinus bradycardia, rate 56 bpm Left axis deviation Incomplete LBBB Moderate voltage criteria for LVH, may be normal variant Nonspecific ST abnormality Chest X-Ray Date: 03/17/23 No active disease in the chest. Echocardiogram Date: 03/08/21 EF 55-59% Normal LV wall motion Grade I diastolic dysfunction
[2023-12-31] MEDS: LR 60ML/HR IV SCH (05:47)
[2023-12-31] MEDS: traMADol HCL 50 MG TABLET PO SCH (05:48)
[2023-12-31] MEDS: LR 500ML BOLUS, THEN 15ML/HR IV SCH (05:48)
[2023-12-31] MEDS: CeleBREX 200 MG CAP PO SCH (05:48)
[2023-12-31] MEDS: dexAMETHasone**PF** 10 MG/ML VIAL IV SCH (05:49)
[2023-12-31] MEDS: ACETAMINOPHEN 500 MG TAB PO SCH ×2 (05:49→13:02)
[2023-12-31] MEDS: Scopolamine 1 MG TDSY TD SCH (05:49)
[2023-12-31] MEDS: FAMOTIDINE 20 MG TAB PO SCH (05:49)
[2023-12-31] MEDS ORDERED: BUPIVACAINE 0.5 % 5 MG/1 ML PF 10ML VIAL ONE (06:13)
[2023-12-31] MEDS ORDERED: ATROPINE SULFATE 0.1 MG/ML 10ML SYR IV PRN (06:36)
[2023-12-31] MEDS ORDERED: ePHEDrine sulfate 50 MG/ML AMP IV PRN (06:36)
[2023-12-31] MEDS ORDERED: ONDANSETRON INJ 2 MG/ML 2 ML VIAL IV PRN (06:36)
[2023-12-31] MEDS ORDERED: fentaNYL citrate PF 100 MCG/2 ML VIAL IV PRN (06:36)
[2023-12-31] MEDS ORDERED: fentaNYL citrate PF 100 MCG/2 ML VIAL ONE (06:37)
[2023-12-31] MEDS ORDERED: MIDAZOLAM HCL 1 MG/ML 2ML VIAL ONE (06:37)
--- NOTE | 2023-12-31 06:39 | History & Physical Bridge Note ---
Date of Service December 31, 2023 History & Physical Bridge Note I have examined the patient, reviewed the History & Physical and in the interval since the performance of the History & Physical I have noted the following changes of clinical significance: no changes noted
[2023-12-31] MEDS: TRANEXAMIC ACID 1,000 MG **IV Pre-op IV SCH (06:51)
[2023-12-31] MEDS: ceFAZolin 2000MG 2,000 MG/15 ML SYR IV SCH ×2 (06:59→14:47)
[2023-12-31] MEDS ORDERED: PROPOFOL IV EMULSION 10 MG/ML 20 ML VIAL IV ONE (07:11)
[2023-12-31] MEDS: ROPIVACAINE 0.5% HCL/PF 246 MG, Ketorolac (*for OR use only*) 30 MG, EPINEPHrine 30MG/3... INFIL SCH (07:27)
[2023-12-31] MEDS: TRANEXAMIC ACID 1,000 MG **IV Intra-op IV SCH (08:03)
[2023-12-31] MEDS ORDERED: diphenhydrAMINE 50 MG/ML VIAL ONE (08:12)
[2023-12-31] MEDS ORDERED: PHENYLEPHRINE 100MCG/ML 10ML SYR IV ONE (08:13)
--- NOTE | 2023-12-31 08:41 | Operative Report ---
Post Operative Report Pre & Post Diagnosis Operation Date: 12/31/23 07:00 Pre-Op Diagnosis: Left Hip Osteoarthritis Post-Op Diagnosis: Left Hip Osteoarthritis I identified the patient and participated in the time-out.: Yes Procedure Operation Date: 12/31/23 07:00 Actual Procedures p Left Total Hip Arthroplasty(Left) - Chacho Simeon MD Surgeon Chacho Simeon MD [employer] Belle Johnston PA-C. No resident or fellow was available to assist. Estimated Blood Loss 100 Findings Consistent with Post-Op Diagnosis Specimens Left femoral head Anesthesia Type Spinal MAC Complications none Disposition Disposition: Recovery Room Indications 73-year-old female with left hip osteoarthritis refractory to conservative management. X-rays demonstrate joint space narrowing, subchondral sclerosis, and marginal osteophyte formation. She has previously undergone a right total hip arthroplasty for the same diagnosis on the right side with a good result. She now desires to proceed with total hip replacement on the left side. I had a long discussion with her about the risks and benefits of surgery, alternatives, and expected outcomes. After reviewing all these she elects to proceed. All questions were answered. Informed consent was signed. Description of Procedure Patient was identified in the preoperative holding area where the surgical site, left hip, was marked. A spinal anesthetic was placed, then the patient was brought back to the main operating room, placed in the operating table and moved into the lateral decubitus position. Axillary roll was placed. All bony prominences were padded. Perioperative antibiotics and tranexamic acid 1 gram IV were administered. The operative extremity was prepped and draped in the normal sterile fashion. Prior to incision a multidisciplinary timeout was called. All in the room were in agreement. We began by making an incision for a posterior approach to the hip. We dissected down through subcutaneous tissues to the level of the fascia. The fascia was incised in line with the incision. Charnley bow was placed. Fatty tissue was reflected posteriorly off the back of the greater trochanter to expose the piriformis and short external rotators of the hip. Quadratus femoris was taken off the femur subperiosteally. The piriformis and short external rotators were dissected off the posterior aspect of the hip. A box cut was made in the capsule. Inferior hip capsule was released off the femur. The femoral head was dislocated. The femoral neck cut was made at our preoperative template. The acetabulum was then exposed. The labrum was sharply excised. Contents of the cotyloid fossa were removed with electrocautery. We then began reaming at a size 8 mm less than our preoperative template. We reamed up by [address] the way up to a size 56 mm cup. This gave us good bleeding cancellus bone circumferentially. The acetabulum was then irrigated out and dried. The real Othello Gription cup was then impacted down into position with 45 degrees of lateral opening and 25 degrees of anteversion. A single cancellous bone screw was placed up into the ilium. Excellent fixation was obtained. A trial liner for a 36 mm femoral head was then placed. Next we turned our attention to the femur. The lateral neck was removed with a box osteotome. Intramedullary guide was used to establish the intramedullary canal. We then broached all the way up to a size 5. We began trialing with a standard offset neck and a +5 head. Hip was reduced. Leg lengths were symmetric. The hip was stable in extension and external rotation, and stable in the sleeper position. At 90 degrees of hip flexion the hip could be internally rotated 70 degrees before levering out of the cup. I was very happy with the stability exam. Therefore the hip was dislocated and the femoral trial was removed. The acetabulum was re-exposed, and the trial liner was removed. [place] hole eliminator screw was placed. An Altrx polyethylene liner for a 36 mm femoral head was then impacted into the shell. The locking mechanism was checked to ensure that it had engaged which it had. The femur was re-exposed. The femoral canal was irrigated and dried. The real size 5 standard offset Actis femoral stem was opened up. This was impacted down into position. The 36 mm ceramic femoral head with +5 mm offset was opened up and gently impacted down onto the trunnion. The hip was atraumatically reduced. Another 1 gram of IV tranexamic acid was started prior to closure. The wound was irrigated out with sterile Betadine solution. The periarticular injection cocktail was then placed. The short external rotators, piriformis, and posterior capsule were repaired through drill holes in the greater trochanter u sing #2 Vicryl. The fascia was run with a looped #1 PDS. The subcutaneous layer was closed with #1 PDS. The dermal layer was closed with 2-0 Vicryl. Zip line was used for the skin followed by a Silverlon dressing. A compressive dressing was then placed. The patient was then rolled supine. Leg lengths were rechecked and were symmetric. An abduction pillow was placed. Sedation was lifted and the patient was transferred to the recovery room in stable condition. Summary of implants: Depuy Othello Gription Acetabular Shell Sector Cup, 56 mm outer diameter Othello Cancellous bone screw, 6.5 x 40 mm [place] hole eliminator Othello Altrx Polyethylene Acetabular Liner, Neutral, with a 36 mm inner diameter DePuy Actis collared cementless Femoral stem, 12/14 taper, size 5 standard offset 36 mm ceramic femoral head with +5 offset Postoperative course: Patient will be admitted overnight from the recovery room. Patient will be weightbearing as tolerated with posterior hip precautions. A spirin for DVT prophylaxis I attest to the content of the Intraoperative Record and any orders documented therein. Any exceptions are noted below.
--- NOTE | 2023-12-31 08:45 | Operative Report ---
Post Operative Report Pre & Post Diagnosis Operation Date: 12/31/23 07:00 Pre-Op Diagnosis: Left Hip Osteoarthritis Post-Op Diagnosis: Left Hip Osteoarthritis I identified the patient and participated in the time-out.: Yes Procedure Operation Date: 12/31/23 07:00 Actual Procedures p Left Total Hip Arthroplasty(Left) - Chacho Simeon MD Surgeon Dr. Simeon [employer] Belle Johnston PA-C. No resident or fellow was available to assist. Estimated Blood Loss 100 Findings Consistent with Post-Op Diagnosis Specimens femoral head Complications none Description of Procedure I was present during the entire case. I assisted with transferring patient, positioning, draping, holding the leg, retracting, and dressing application. I assisted with transferring her to liter. Patient left the OR in stable condition. Please refer to Dr. Simeon's operative report for complete details. I attest to the content of the Intraoperative Record and any orders documented therein. Any exceptions are noted below.
[2023-12-31] MEDS ORDERED: NALOXONE HCL 0.4 MG/1 ML VIAL/CARP IV PRN (08:50)
[2023-12-31] MEDS ORDERED: METOCLOPRAMIDE HCL INJ 5 MG/ML 2 ML VIAL IV PRN (08:50)
[2023-12-31] MEDS ORDERED: MAGNESIUM HYDROXIDE SUSP 30 ML UDC PO PRN (08:50)
[2023-12-31] MEDS ORDERED: bisacodyL 10 MG SUPP PR PRN (08:50)
[2023-12-31] MEDS ORDERED: HYDROmorphone INJ 0.5 MG/0.5 ML SYR IV PRN (08:50)
[2023-12-31] MEDS ORDERED: traMADol HCL 50 MG TABLET PO PRN (08:50)
[2023-12-31] MEDS ORDERED: diphenhydrAMINE Capsule 25 MG CAP PO PRN (08:50)
[2023-12-31] MEDS ORDERED: NON-FORMULARY MEDICATION (Multivitamin Tablet) PO SCH (09:32)
[2023-12-31] MEDS: ORTHO JOINT ANESTHETIC ONE (09:36)
[2023-12-31] MEDS: ONDANSETRON INJ 2 MG/ML 2 ML VIAL IV PRN (09:41)
[2023-12-31] MEDS: SODIUM CHLORIDE 0.9% 1,000 ML IV SCH (09:49)
--- NOTE | 2023-12-31 09:56 | XRay Report ---
XR hip 1V LT w pelvis HISTORY: 73 years-old Female IN PACU - Post Surgical left hip arthroplasty COMPARISON: 10/06/2023 TECHNIQUE: AP view the pelvis with crosstable lateral view of the left hip FINDINGS: Unremarkable right hip arthroplasty. The left hip arthroplasty is also unremarkable with adjacent exp ected postoperative soft tissue swelling and deep tissue air. No acute fracture or unexpected opaque foreign body. IMPRESSION: Left hip arthroplasty with expected postoperative changes. ACT 112: Negative or not required by law. The above report was generated using voice recognition software. It may contain grammatical, syntax o r spelling errors. Electronically signed by: Ryder Small M.D. 12/31/2023 9:55 AM
[2023-12-31] MEDS: CHOLECALCIFEROL 25 MCG (1000 UNITS) TAB PO SCH (10:14)
[2023-12-31] MEDS: DOCUSATE SODIUM 100 MG CAP PO SCH (10:14)
[2023-12-31] MEDS: MULTIVITAMIN TAB PO SCH (10:14)
[2023-12-31] MEDS: PANTOprazole 40 MG TAB PO SCH (10:14)
[2023-12-31] MEDS: OMEGA-3 (PURIFIED FISH OIL) 1 GM CAP PO SCH (10:14)
[2023-12-31] MEDS: LEVOTHYROXINE SODIUM 100 MCG TABLET PO SCH (10:15)
[2023-12-31] MEDS: CALCIUM CARBONATE 1250MG TAB PO SCH (10:15)
--- NOTE | 2023-12-31 12:10 | Anesthesiology Progress Note ---
Date of Service December 31, 2023 Anesthesia Post Procedure Vital Signs Vital Signs: Temp Pulse Pulse Resp BP BP Pulse Ox 12/31/23 11:42 36.4 C L 77 16 119/62 98 12/31/23 10:36 36.3 C L 73 16 125/78 99 12/31/23 10:06 35.7 C L 65 15 112/69 97 12/31/23 09:37 36.3 C L 63 16 146/79 H 94 12/31/23 09:20 62 16 126/61 96 12/31/23 09:10 36.1 C L 64 15 125/57 L 96 12/31/23 09:00 69 15 130/61 100 12/31/23 08:50 73 15 124/59 L 100 12/31/23 08:44 36.0 C L 65 17 111/63 96 12/31/23 05:45 36.7 C 69 20 143/78 H 99 O2 Del Method O2 Flow Rate 12/31/23 11:42 Room Air 12/31/23 10:36 Room Air 12/31/23 10:06 Room Air 12/31/23 09:37 Room Air 12/31/23 09:20 Room Air 12/31/23 09:10 Room Air 12/31/23 09:00 Oxymask 5 12/31/23 08:50 Oxymask 5 12/31/23 08:44 Oxymask 5 12/31/23 05:45 Room Air Pain Intensity Left Hip: Pain Intensity: 10 Transfer of Care Handoff Completed per policy Notes Mental Status: alert / awake / arousable Patient Amnestic to Procedure: Yes Nausea / Vomiting: adequately controlled Pain: adequately controlled Airway Patency, RR, SpO2: stable & adequate BP & HR: stable & adequate Hydration State: stable & adequate Anesthetic Complications: no major complications apparent and Pt Satisfied with anesthetic care
[2023-12-31] MEDS ORDERED: Scopolamine CHECK PATCH PLACEMENT SCH (16:00)
[2023-12-31] MEDS: KETOROLAC TROMETHAMINE 15 MG/ML VIAL IV SCH (17:03)
[2023-12-31] MEDS: oxyCODONE HCL IR 5 MG TAB (IMMEDIATE RELEASE) PO PRN (18:08)
[2023-12-31] MEDS: SENNA 8.6 MG TAB PO SCH (19:52)
[2023-12-31] MEDS: PRAVASTATIN SOD 20 MG TAB PO SCH (19:53)
--- OUTSIDE RECORDS SUMMARY | 2023-12-31 20:53 | External Medical Summary | Summary of Care ---
Author Name Unknown Organization [facility] Address [address] [place] [address] Phone [phone] Care Team Providers Care Sole Conforming Machine Operator Name Role Phone Cris Lang DO Primary Care Provider [phone] Reason for Referral * Evaluate & Treat - Unlimited Visits (Within 30 days (routine)) - Authorized Specialty Diagnoses / Procedures Referred By Contact Referred To Contact Cardiovascular Medicine / Cardiology Diagnoses Left axis deviation Left bundle branch block (LBBB) determined by electrocardiography Cheyanne James CRNP [address] [place] [address] Referral ID Status Reason Start Date Expiration Date Visits Requested Visits Authorized [id number] Authorized Specialty Services Required 12/22/[phone] Question Answer Referral Priority Within 30 days (routine) Where should this appointment be scheduled? [facility] To which of the following clinics are you referring your patient? General Cardiology Clinic Comments LEFT AXIS DEVIATION, LEFT BBB Reason for Visit * Reason Comments pre-op exam Left hip replacement 12/31/23 [facility]. Encounter Details Date Type Department Care Team (Latest Contact Info) Description 12/22/2023 9:20 AM EDT Office Visit [facility] [address] [place] [address] Cheyanne James CRNP [address] [place] [id number] Preoperative general physical examination*; Left axis deviation; Left bundle branch block (LBBB) determined by electrocardiography Allergies Active Allergy Reactions Criticality Noted Date Comments Clindamycin 03/08/2012 Chest squeezing x 3 days Morphine And Related Nausea/vomiting 03/26/2005 Pt also has extreme sweating. documented as of this encounter (statuses as of 12/22/2023) Medications Medication Sig Dispensed Refills Start Date End Date Status MULTIVITAMIN/IRON PO TABS None Entered 0 Active VITAMIN D 1000 UNIT PO CAPSIndications:Other specified acquired hypothyroidism (2) daily 30 Cap 11 11/11/2010 Active FEXOFENADINE HCL 60 MG PO TABSIndications:Aller gic rhinitis due to other allergen TAKE 1 TABLET EVERY 12 HOURS FOR ALLERGIES 180 Tab 3 12/09/2010 Active CO Q 10 10 MG PO CAPS 1 capsule by mouth daily 0 Active LUTEIN 6 MG PO TABS one pill by mouth daily 0 Active FISH OIL 1000 MG PO CAPS one pill each day 0 Active Probiotic Product (PROBIOTIC ACIDOPHILUS BIOBEADS) Capsule Take 1 Cap by mouth three times a day with meals. 0 Active Calcium 500-125 MG-UNIT Tablet Take 1 Tab by mouth three times a day with meals. 0 Active Acetaminophen ER 650 MG Oral Tablet Extended Release Take 2 Tablets by mouth every 8 hours as needed. 0 Active Ondansetron HCl 4 MG Oral TabletIndications:Jimbo ign paroxysmal positional vertigo, unspecified laterality Take by mouth 1 Tablet every 6 hours as needed for Nausea. 30 Tablet 0 02/18/2022 Active Levothyroxine Sodium 100 MCG Oral Tablet (Levoxyl)Indications: Hypothyroidism due to acquired atrophy of thyroid take 1 tablet by mouth once daily AT LEAST 30 MINUTES PRIOR TO BREAKFAST/OTHER MEDS 90 Tablet 3 04/14/2023 Active Omeprazole 40 MG Oral Capsule Delayed Release (PriLOSEC)Indications :Gastroesophageal reflux disease take 1 capsule by mouth once daily 1 hour BEFORE THE FIRST MEAL OF THE DAY 90 Capsule 3 04/14/2023 Active Meloxicam 15 MG Oral Tablet Take 1 Tablet by mouth in the morning. Take with food. Do not take with any other NSAIDS. 90 Tablet 3 05/11/2023 Active Pravastatin Sodium 20 MG Oral Tablet (Pravachol) take 1 tablet by mouth once daily 90 Tablet 3 05/20/2023 Active Gabapentin 100 MG Oral Capsule (Neurontin)Indication s:Lumbar radicular pain take 1 capsule by mouth every morning if needed and 1 capsule by mouth AT NOON if needed and 1 capsule by mouth every evening if needed for back pain 90 Capsule 5 11/05/2023 Active Meclizine HCl 25 MG Oral Tablet (Antivert)Indications :Dizziness,Acute sinusitis, recurrence not specified, unspecified location TAKE 1 TABLET BY MOUTH IN THE MORNING, 1 TABLET AT NOON, AND 1 TABLET IN THE EVENING NEEDED FOR DIZZINESS 30 Tablet 2 11/24/2023 Active documented as of this encounter (statuses as of 12/22/2023) Active Problems Problem Noted Date Diagnosed Date Preoperative general physical examination 2023 Left axis deviation 12/22/2023 Left bundle branch block (LB BB) determined by electrocardiography 12/22/2023 Ulnocarpal impaction syndrome, right 06/08/2020 Right wrist pain 05/30/2020 Neuropraxia of right upper extremity 11/16/2019 Carpal tunnel syndrome on right 11/16/2019 History of colon polyps 02/04/2019 Overview: Tubular adenoma ASCUS with positive high risk HPV 06/19/2015 Overview: 2008 Colpo mild ectocervical dysplasia/LGSIL Normal annual paps since. 2018 Pap and HPV negative Family history of melanoma 06/19/2014 Overview: father Postmenopausal atrophic vaginitis 11/21/2013 Dyslipidemia, goal LDL below 100 05/14/2010 ADVANCE DIRECTIVE INFORMATION 02/09/2006 Overview: Pt declined brochure. Hypothyroidism due to acquired atrophy of thyroi d FIBROCYSTIC BREAST TISSUE Other allergic rhinitis Overview: ICD-10 update of inactive term Irritable bowel syndrome documented as of this encounter (statuses as of 12/22/2023) Resolved Problems Problem Noted Date Diagnosed Date Resolved Date Hepatic steatosis 06/02/2012 07/11/2015 Dyslipidemia, goal to be determined 08/16/2009 11/09/2009 Overview: Per Lipid Taxonomy. Dyslipidemia, goal LDL below 160 06/07/2007 08/16/2009 Overview: Per Lipid Taxonomy. TUBULAR ADENOMA OF COLON 07/29/2004 Viral warts 09/14/2000 12/28/2000 Overview: ICD-10 update of inactive term documented as of this encounter (statuses as of 12/22/2023) Immunizations Name Administration Dates Next Due COVID-19 mRNA, LNP-s, No Pre serve, 2-Dose Series (Moderna) 01/15/2022,07/07/2021,11/02/2020,10/05 COVID-19, MRNA-LNP, 23-24, P F, 50 MCG/0.5 mL, 12 YRS AND ABOVE, IM (MODERNA-Spikevax) 06/03/2023 Covid-19, Mrna, Lnp-s, Pf, B ivalent, 25 Mcg, IM,6-11 yrs (Moderna) 05/29/2022 Pneumococcal Conjugate Vacc, 13 Valent (Prevnar) 01/29/2018,01/29/2018 Pneumococcal Polysaccharide PPV23 (Pneumovax) 01/06/2019 RSV Vac., Recomb, Adjuvant, PF,0.5 Ml (Arexvy) 09/18/2023 Seasonal Influenza Virus Vac cine, Unspecified Formulation 07/10/2018 Seasonal Influenza, Quadriva lent Hd (Fluzone Hd) 05/26/2023,05/30/2022 Seasonal Influenza, Quadriva lent, No Preserve, IM 06/26/2017 Seasonal Influenza, Split, I IV3, With Preserve, Inj 06/26/2016,07/03/2015,06/25/2013,05/24,05/16/2011,07/08/2010,06/07/2008 ,06/26/2007 Seasonal Influenza, Trivalen t, Adjuvanted, 65+ yrs 06/04/2021,06/06/2019,07/10/2018 TDAP (age 10 and older)(Boostrix) 01/07/2019 TDAP (age 11 and older)(Adacel) 01/06/2019,03/02 Varicella Zoster Vaccine (Adult) 06/24/2013 Zoster Vaccine Recombinant (Shingrix) 03/11/2019 ,01/08/2019 documented as of this encounter Social History Tobacco Use Types Packs/Day Years Used Date Smoking Tobacco: Never Smokeless Tobacco: Never Alcohol Use Standard Drinks/Week Comments Yes 0 (1 standard drink = 0.6 oz pur e alcohol) seldom PHQ-2 Answer Date Recorded PHQ Adult Total Score 2 03/19/2022 Hunger Vital Sign Answer Date Recorded Within the past 12 months, y ou worried that your food would run out before you got the money to buy more. Never true 12/08/19 24 Within the past 12 months, t he food you bought just didn't last and you didn't have money to get more. Never true 12/08/2023 Sex and Gender Information Value Date Recorded Sex Assigned at Female 11/09/2019 10:01 AM EST Gender Identity Female 11/09/2019 10:01 AM EST Sexual Orientation Straight 11/09/2019 10 :01 AM EST Job Start Date Occupation Industry Not on file Not on file Not on file documented as of this encounter Last Filed Vital Signs Vital Sign Reading Time Taken Comments Blood Pressure 122/80 12/22/2023 9:21 AM EDT Pulse 77 12/22/2023 9:21 AM EDT Temperature - - Respiratory Rate - - Oxygen Saturation - - Inhaled Oxygen Concentration - - Weight 73.5 kg (162 lb 2 oz) 12/22/2023 9:21 AM EDT Height - - Body Mass Index 25.39 03/18/2023 5:52 PM EDT documented in this encounter Functional Status Functional Status Response Date of Assess ment Are you deaf or do you have serious difficulty h earing? No 03/25/2021 Are you blind or do you have serious difficulty seeing, even when wearing glasses? No 03/25/2021 Do you have serious difficul ty walking or climbing stairs? (5 years old or older) No 03/26/2021 Do you have difficulty dress ing or bathing? (5 years old or older) No 03/25/2021 Because of a physical, menta l, or emotional condition, do you have difficulty doing errands alone such as visiting a doctor s office or shopping? (15 years old or older) No 03/25/20 21 Cognitive Status Response Date of Assessm ent Because of a physical, menta l, or emotional condition, do you have serious difficulty concentrating, remembering, or making decisions? (5 years old or older) No 03/25/2021 documented as of this encounter Progress Notes * Erika CheyanneNICHOLAS Allen - 12/22/2023 9:40 AM EDT Jael Rangel : 1950 Chief Complaint: Patient is sent for pre-operative medical clearance at the request of Dr. Moseley Planned Surgery: Left total hip replacement Date: 12/31/2023 Planned anesthesia: Spinal HPI: 73 year old female presenting for preoperative clearance. Jael is able to walk 1 [address] block without rodriguez and able to ascend 1 flight of step without shortness of breath. Denies difficulty with anesthesia in the past. She did have difficulty maintaining temp after last surgery-03/2023. Of note- EKG showing LBBB and left axis deviation. This is unchanged compared to 2020. Patient Active Problem List Diagnosis Code Hypothyroidism due to acquired atrophy of thyroid E03.4 FIBROCYSTIC BREAST TISSUE N60.19 Other allergic rhinitis J30.89 Irritable bowel syndrome K58.9 ADVANCE DIRECTIVE INFORMATION Dyslipidemia, goal LDL below 100 E78.5 Postmenopausal atrophic vaginitis N95.2 Family history of melanoma Z80.8 ASCUS with positive high risk HPV [id number] History of colon polyps Z86.010 Neuropraxia of right upper extremity S44.91XA Carpal tunnel syndrome on right G56.01 Right wrist pain M25.531 Ulnocarpal impaction syndrome, right M25.831 Past Surgical History: Procedure Laterality Date ANTERIOR EYE SURGERY PROCEDURE NEC Bilateral Cataract Removal ARTHROPLASTY KNEE TOTAL Left 03/25/2021 ROBOTIC ARTHROPLASTY KNEE TOTAL performed by Esdras Esparza DO at OR [facility] DELIVERY Delivery x2 COLONOSCOPY 04/28/07 Normal colon COLONOSCOPY, DIAGNOSTIC (RECTUM) 03/12/04 tubular adenoma- repeat in 3 years COLONOSCOPY, DIAGNOSTIC (RECTUM) 06/11/2012 COLONOSCOPY FLEXIBLE PROXIMAL DIAGNOSTIC performed by Lamar Flores DO at ENDOSCOPY [facility],path shows adenomatous polyps repeat in 5 years COLONOSCOPY, DIAGNOSTIC (RECTUM) 10/12/2017 normal, repeat 5 yrs/COLONOSCOPY FLEXIBLE PROXIMAL DIAGNOSTIC performed by Lamar Flores DO at ENDOSCOPY [facility] COLPOSCOPY OF CERVIX W/BIOPSY 11/12 LGSIL for pap ascus/pos hr hpv DESTROY LUMBAR SACRAL NERVE IMAGING SINGLE 06/18/2022 DESTROY LUMBAR SACRAL NERVE IMAGING SINGLE performed by Jaiden St DO at OR [facility] GLASS MECHANIC PAP DIAGNOSTIC 10/16 normal (pt failed 6 mon f/u pap) GLASS MECHANIC PAP DIAGNOSTIC 12/15 normal INJECT DX/THER SUBSTANCE INTERLAMINAR LUMBAR/SACRAL W IMAGE GUIDE 04/16/2022 INJECTION SPINE LUMBAR OR SACRAL performed by Jaiden St DO at OR [facility] INJECT DX/THER SUBSTANCE INTERLAMINAR LUMBAR/SACRAL W IMAGE GUIDE 08/13/2022 INJECTION SPINE LUMBAR OR SACRAL performed by Jaiden St DO at OR [facility] L-/S-SPINE PARAVERTEBRAL FACET INJ,1 LEVEL 06/04/2022 L-/S-SPINE PARAVERTEBRAL FACET INJ, 1 LEVEL performed by Jaiden St DO at OR [facility] L-/S-SPINE PARAVERTEBRAL FACET INJ,1 LEVEL 06/11/2022 L-/S-SPINE PARAVERTEBRAL FACET INJ, 1 LEVEL performed by Jaiden St DO at OR [facility] REMOVE CATARACT, INSERT LENS PROSTH Left 11/17/2019 left EXTRACAPSULAR CATARACT REMOVAL WITH INTRAOCULAR LENS performed by Bonilla Stephenson MD at OR [facility] REMOVE CATARACT, INSERT LENS PROSTH Right 11/28/2019 right EXTRACAPSULAR CATARACT REMOVAL WITH INTRAOCULAR LENS performed by Bonilla Stephenson MD at OR [facility] Current Outpatient Medications Medication Sig Dispense Refill MULTIVITAMIN/IRON PO TABS None Entered VITAMIN D 1000 UNIT PO CAPS (2) daily 30 Cap 11 FEXOFENADINE HCL 60 MG PO TABS TAKE 1 TABLET EVERY 12 HOURS FOR ALLERGIES 180 Tab 3 CO Q 10 10 MG PO CAPS 1 capsule by mouth daily LUTEIN 6 MG PO TABS one pill by mouth daily FISH OIL 1000 MG PO CAPS one pill each day Probiotic Product (PROBIOTIC ACIDOPHILUS BIOBEADS) Capsule Take 1 Cap by mouth three times a day with meals. Calcium 500-125 MG-UNIT Tablet Take 1 Tab by mouth three times a day with meals. Acetaminophen ER 650 MG Oral Tablet Extended Release Take 2 Tablets by mouth every 8 hours as needed. Ondansetron HCl 4 MG Oral Tablet Take by mouth 1 Tablet every 6 hours as needed for Nausea. 30 Tablet 0 Levothyroxine Sodium 100 MCG Oral Tablet (Levoxyl) take 1 tablet by mouth once daily AT LEAST 30 MINUTES PRIOR TO BREAKFAST/OTHER MEDS 90 Tablet 3 Omeprazole 40 MG Oral Capsule Delayed Release (PriLOSEC) take 1 capsule by mouth once daily 1 hour BEFORE THE FIRST MEAL OF THE DAY 90 Capsule 3 Meloxicam 15 MG Oral Tablet Take 1 Tablet by mouth in the morning. Take with food. Do not take withany other NSAIDS. 90 Tablet 3 Pravastatin Sodium 20 MG Oral Tablet (Pravachol) take 1 tablet by mouth once daily 90 Tablet 3 Gabapentin 100 MG Oral Capsule (Neurontin) take 1 capsule by mouth every morning if needed and 1 capsule by mouth AT NOON if needed and 1 capsule by mouth every evening if needed for back pain 90 Capsule 5 Meclizine HCl 25 MG Oral Tablet (Antivert) TAKE 1 TABLET BY MOUTH IN THE MORNING, 1 TABLET AT NOON,AND 1 TABLET IN THE EVENING NEEDED FOR DIZZINESS 30 Tablet 2 No current facility-administered medications for this visit. Review of patient's allergies indicates: Allergen Reactions Clindamycin Chest squeezing x 3 days Morphine And Related Nausea/vomiting Pt also has extreme sweating. Social History Socioeconomic History Marital status: Spouse name: Not on file Number of children: 2 Years of education: Not on file Highest education level: Not on file Occupational History Occupation: FINANCIAL SERVICES OFFICER Employer: [employer] [address] Tobacco Use Smoking status: Never Smokeless tobacco: Never Vaping Use Vaping Use: Never used Substance and Sexual Activity Alcohol use: Yes Comment: seldom Drug use: No Sexual activity: Yes Partners: Male Other Topics Concern Service Not Asked Blood Transfusions Not Asked Caffeine Concern Not Asked Occupational Exposure Not Asked Hobby Hazards Not Asked Sleep Concern Not Asked Stress Concern Not Asked Weight Concern Not Asked Special Diet Not Asked Back Care Not Asked Exercise No Comment: but active Bike Helmet Not Asked Seat Belt Not Asked Self-Exams Yes Comment: breast Social History Narrative Not on file Social Determinants of Health Financial Resource Strain: Not on file Food Insecurity: No Food Insecurity (12/08/2023) Hunger Vital Sign Worried About Running Out of Food in the Last Year: Never true Ran Out of Food in the Last Year: Never true Transportation Needs: Not on file Physical Activity: Not on file Stress: Not on file Social Connections: Not on file Intimate Partner Violence: Not on file Housing Stability: Not on file Family History Problem Relation Age of Onset Heart disease Mother Stroke Mother Macular degeneration Mother AMD Aortic aneurysm Mother Melanoma Father Heart attack Father Thyroid Disorder Sister Diabetes Brother Thyroid Disorder Grandmother (Maternal) Heart attack Grandfather (Paternal) Breast Cancer No significant family history Colon cancer No significant family history Ovarian cancer No significant family history Retinal detachment No significant family history Blindness No significant family history Glaucoma No significant family history Review of Systems Constitutional: Negative for chills, diaphoresis, fatigue and fever. Respiratory: Negative for cough, shortness of breath and wheezing. Cardiovascular: Negative for chest pain, palpitations and leg swelling. Gastrointestinal: Negative for abdominal pain, blood in stool, constipation, diarrhea, nausea and vomiting. Neurological: Negative for dizziness and syncope. Psychiatric/Behavioral: Negative for sleep disturbance. Filed Vitals: 12/22/23 0921 BP: 122/80 Pulse: 77 Weight: 73.5 kg (162 lb 2 oz) Physical Exam HENT: Head: Normocephalic. Eyes: Pupils: Pupils are equal, round, and reactive to light. Cardiovascular: Rate and Rhythm: Normal rate and regular rhythm. Pulmonary: Effort: Pulmonary effort is normal. Breath sounds: Normal breath sounds. Abdominal: General: Bowel sounds are normal. Palpations: Abdomen is soft. Tenderness: There is no abdominal tenderness. Musculoskeletal: General: Normal range of motion. Cervical back: Normal range of motion. Neurological: General: No focal deficit present. Mental Status: She is alert and oriented to person, place, and time. Psychiatric: Mood and Affect: Mood normal. Behavior: Behavior normal. Thought Content: Thought content normal. Judgment: Judgment normal. 1. Preoperative general physical examination PRE-OPERATIVE TESTS: ECG:showing unchanged left axis deviation, LBBB LABS:normal CBC and CMP, U/a negative PRE-OPERATIVE CLEARANCE DISCUSSION: There is no medical contraindication for the proposed surgery and anesthesia. Concerns/Precautions: none 2. Left axis deviation NOTED BACK TO 2020 ECHO REASSURING 2020 RECOMMEND CARDIOLOGY EVAL 3. Left bundle branch block (LBBB) determined by electrocardiography I spent a total of 40-54 minutes (exact time 40 mins) on the date of service in preparation, delivery, and documentation of the care provided to Jael Rangel excluding any time spent in the performance of separately billed services. documented in this encounter Procedure Notes * Brad Hillman DO - 12/22/2023 8:58 AM EDTAssociated Order(s): EKG REASON FOR STUDY: PREOP CONCLUSIONS: Sinus rhythm with 1st degree AV block Possible Left atrial enlargement Left axis deviation Left ventricular hypertrophy Abnormal ECG When compared with ECG of 05-Mar-2021 14:39, No significant change was found Ventricular Rate: 68 Atrial Rate: 68 ME Interval: 232 QRS Duration: 102 QT/QTc: 430/457 ms P-R-T [place]: 58 : -42 : 49 degrees documented in this encounter Plan of Treatment Upcoming Encounters Date Type Department Care Team (Late st Contact Info) Description 01/29/2024 11:00 AM EDT Imaging Radiology [facility] [address] [place] [address] 02/02/2024 11:00 AM EDT Office Visit Cardiology, [facility] [address] [place] [address] Cas Choudhary, [address] [place] [address] 03/23/2024 5:40 PM EDT Office Visit Family Practice [facility] [address] [place] [address] Cris Lang DO [address] [place] [address] 09/15/2024 1:20 PM EST Office Visit Dermatology [facility] [address] [place] [address] Roxanna Owusu PA-C [address] [place] [phone] Scheduled Procedures Name Priority Associated Diagnoses Date/Ti me COLONOSCOPY FLEXIBLE PROXIMAL DIAGNOSTIC Recall History of colon polyps Scheduled Referrals Name Type Priority Associated Diagnoses Orde r Schedule CARDIOLOGY REFERRAL OP Referral Within 30 days (routine) Left axis deviation Left bundle branch block (LBBB) determined by electrocardiography Ordered: 12/22/2023 Health Maintenance Due Date Last Done Comments COLONOSCOPY-EVERY 5 YRS AGES 18-100 10/12/2022 10/12/2017, 10/12/2017, 06/11/2012, Additional history exists Depression Screening 03/19/2023 03/19/2022 Mammogram 01/02/2024 01/01/2023, 12/07, 01/01/2022, Additional history exists TSH 03/19/2024 03/19/2023, 02/07, 03/05/2021, Additional history exists DXA Scan 05/20/2026 05/20/2022, 05/08, 09/04/2015, Additional history exists Lipid Panel 03/19/2028 03/19/2023, 02/07, 03/05/2021, Additional history exists DTaP,Tdap,and Td Vaccines (4 - Td or Tdap) 01/07/2029 01/07/2019, 01/06/2019, 03/02/2008 Pneumococcal Vaccine: 65+ Years Completed 01/06/2019, 01/29/2018, 01/29/2018 Zoster Vaccines Completed 03/11/2019, 12/2018, 06/24/2013 Influenza Vaccine (FLU shot) Completed , 05/30/2022, 06/04/2021, Additional history exists COVID-19 Vaccine Completed 06/03/2023, , 01/15/2022, Additional history exists GARDASIL-HPV IMMUNIZATION SERIES Aged Out No longer eligible based on patient's age to complete this topic Hepatitis B Aged Out No longer eligi ble based on patient's age to complete this topic MENINGOCOCCAL (MENACTRA/MENVEO) Aged Out No longer eligible based on patient's age to complete this topic documented as of this encounter Medical Devices Implanted Type Area Public Address System Operator Device Identifier Shelf Expiration Date Model / Serial / Lot Lens 17.0 Mx60e - [id number] - [id number] Implanted:Qty: 1 on 11/17/2019 by Bonilla Stephenson MD at OR [facility] Left: Eye [employer] 04/06/2022 [id number]-05.0 / [id number] / [id number] Lens 17.0 Mx60e - [id number] - [id number] Implanted:Qty: 1 on 11/28/2019 by Bonilla Stephenson MD at OR [facility] Right: Eye [employer]OM[employer] 08/06/2022 [id number]-66.0 / [id number] / [id number] Patella Symmetric S33mm 9mm - [id number] Implanted:Qty: 1 on 03/25/2021 by Esdras Esparza DO at OR [facility] Left: Knee [employer]ER[employer]ZA : ORTHOPAEDICS 01/01/2026 [id number] / / [id number] Baseplate #4 Tritanium - [id number] Implanted:Qty: 1 on 03/25/2021 by Esdras Esparza DO at OR [facility] Left: Knee [employer] : ORTHOPAEDICS 12/03/2025 [id number] / / [id number] Knee Triathlon Bead No Salvador L 5 - [id number] Implanted:Qty: 1 on 03/25/2021 by Esdras Esparza DO at OR [facility] Left: Knee [employer] : ORTHOPAEDICS 12/16/2025 [id number] / / [id number] Knee X3 Ins Pos Cs Sz4 9 - [id number] Implanted:Qty: 1 on 03/25/2021 by Esdras Esparza DO at OR [facility] Left: Knee [employer] : ORTHOPAEDICS 12/27/2025 [id number] / / [id number] documented as of this encounter Procedures Procedure Name Priority Date/Time Associated Diagnosis Comments ME ECG ROUTINE ECG W/LEAST 12 LDS I&R ONLY Routine 12/22/2023 8:58 AM EDT Preoperative general physical examination documented in this encounter Results * EKG (12/22/2023 8:58 AM EDT) 12/22/2023 8:58 AM EDT Narrative Procedure Note Brad Hillman, - 12/22/2023 8:58 AM EDT REASON FOR STUDY: PREOP CONCLUSIONS: Sinus rhythm with 1st degree AV block Possible Left atrial enlargement Left axis deviation Left ventricular hypertrophy Abnormal ECG When compared with ECG of 05-Mar-2021 14:39, No significant change was found Ventricular Rate: 68 Atrial Rate: 68 ME Interval: 232 QRS Duration: 102 QT/QTc: 430/457 ms P-R-T [place]: 58 : -42 : 49 degrees Cheyanne PETERSON EKG [facility] documented in this encounter Visit Diagnoses Diagnosis Preoperative general physical examination- Primary Other specified pre-operative examination Left axis deviation Nonspecific abnormal electrocardiogram (ECG) (EKG) Left bundle branch block (LBBB) determined by electrocardiography documented in this encounter Advance Directives Latest Code Status on File Code Status Date Activated Date Inactivated Comments Full Code 03/25/2021 1:34 PM 03/26/2021 4:24 PM This order reflects the patients wishes and were consensually agreed upon. Question Answer Comments Discussion of Advance Directives occurred with: Patient Does the patient have a Living Will? Yes, not currently available Does the patient have Health Care Power of Manufacturing Engineering Technologist? Yes, not currently available Care Teams Sole Conforming Machine Operator Relationship Specialty Start Date End Date Cris Lang DO [address] [place] [id number] PCP - General Family Medicine 09/22/16 documented as of this encounter
--- OUTSIDE RECORDS SUMMARY | 2023-12-31 20:53 | External Medical Summary | Summary of Care ---
Author Name Unknown Organization [facility] Address [address] [place] [address] Phone [phone] Care Team Providers Care Drier Take Off Tender Name Role Phone Cris Lang DO Primary Care Provider [phone] Encounter Details Date Type Department Care Team (Late st Contact Info) Description 12/25/2023 Patient Reported Data Patient Survey Ortho FORCE Allergies Active Allergy Reactions Criticality Noted Date Comments Clindamycin 03/08/2012 Chest squeezing x 3 days Morphine And Related Nausea/vomiting 03/26/2005 Pt also has extreme sweating. documented as of this encounter (statuses as of 12/25/2023) Medications Medication Sig Dispensed Refills Start Date [...] as of this encounter (statuses as of 12/25/2023) Active Problems Problem Noted Date Diagnosed Date [...] as of this encounter (statuses as of 12/25/2023) Resolved Problems Problem Noted Date Diagnosed Date Resolved Date Hepatic steatosis 06/02/2012 07/11/2015 Dyslipidemia, goal to be determined 08/16/2009 11/09/2009 Overview: Per Lipid Taxonomy. Dyslipidemia, goal LDL below 160 06/07/2007 08/16/2009 Overview: Per Lipid Taxonomy. TUBULAR ADENOMA OF COLON 07/29/2004 Viral warts 09/14/2000 12/28/2000 Overview: ICD-10 update of inactive term documented as of this encounter (statuses as of 12/25/2023) Immunizations Name Administration Dates Next Due COVID-19 [...] on file documented as of this encounter Functional Status Functional Status Response [...] No 03/25/2021 documented as of this encounter Plan of Treatment Upcoming Encounters Date Type Department Care Team (Late st Contact Info) Description 01/29/2024 11:00 AM EDT Imaging Radiology [address] [place] [id number] 02/02/2024 11:00 AM EDT Office Visit Cardiology, [facility] [address] [address] Cas Choudhary, DO [address] [place] [address] 03/23/2024 5:40 PM EDT Office Visit Family Practice [facility] [address] [place] [address] Cris Lang, DO [address] [place] [address] 09/15/2024 1:20 PM EST Office Visit Dermatology [facility] [address] [place] [address] Roxanna Owusu PA-C [address] [facility] [place] [phone] Scheduled Procedures Name Priority Associated Diagnoses Date/Ti me COLONOSCOPY FLEXIBLE PROXIMAL DIAGNOSTIC Recall History of colon polyps Health Maintenance Due Date Last Done Comments [...] this encounter Medical Devices Implanted Type Area Hvac Services Professional Device Identifier Shelf Expiration Date Model / Serial / Lot Lens 17.0 Mx60e - [id number] - [id number] Implanted:Qty: 1 on 11/17/2019 by Bonilla Stephenson MD at [facility] Left: Eye [employer]USCH [employer] LOMB 04/06/2022 [id number]-57.0 / [id number] / [id number] Lens 17.0 Mx60e - [id number] - [id number] Implanted:Qty: 1 on 11/28/2019 by Bonilla Stephenson MD at [facility] Right: Eye BAUSCH [employer] LOMB 08/06/2022 WA11W-07.0 / [id number] / [id number] Patella Symmetric S33mm 9mm - [id number] Implanted:Qty: 1 on 03/25/2021 by Esdras Esparza, DO at [facility] Left: Knee ESPERANZA : ORTHOPAEDICS 01/01/2026 [id number] / / [id number] Baseplate #4 Tritanium - [id number] Implanted:Qty: 1 on 03/25/2021 by Esdras Esparza DO at [facility] Left: Knee ESPERANZA : ORTHOPAEDICS 12/03/2025 5536-[id number] / / [id number] Knee Triathlon Bead No Salvador L 5 - [id number] Implanted:Qty: 1 on 03/25/2021 by Esdras Esparza DO at [facility] Left: Knee ESPERANZA : ORTHOPAEDICS 12/16/2025 [id number] / / [id number] Knee X3 Ins Pos Cs Sz4 9 - [id number] Implanted:Qty: 1 on 03/25/2021 by Esdras Esparza DO at OR [facility] Left: Knee ESPERANZA : ORTHOPAEDICS 12/27/2025 [id number] / / [id number] documented as of this encounter Advance Directives Latest Code Status [...] the patient have Health Care Power of Home Advisor? Yes, not currently available Care Teams Drier Take Off Tender Relationship Specialty Start Date End Date Cris Lang DO [address] [place] [address] PCP - General Family Medicine 09/22/16 documented as of this encounter
--- OUTSIDE RECORDS SUMMARY | 2023-12-31 20:53 | External Medical Summary | Continuity of Care Document ---
Author Name Unknown Organization [id number] Address [address] [place] [phone] Care Team Providers Care Qualitative Executive Researcher Name Role Phone Cris Lang Primary Care Physician [phone] [id number] Date(s): 12/16/23 - 12/16/23 [facility] 0 [facility] [facility] [address] [place] [id number] Encounter Diagnosis Pre-op testing(Discharge Diagnosis) - 12/16/23 Osteoarthritis of left hip(Discharge Diagnosis) - 12/16/23 Discharge Disposition: Home or Self Care Attending Physician: KEREN Jefferson Dennis Referring Physician: MD Cailin, Chacho Salguero Allergies, Adverse Reactions, Alerts Substance Reaction Severity Status clindamycin chest tightness Active Medications calcium acetate Start: 10/13/22 14:01:00 EST Start Date: 10/13/22 Status: Ordered Co Q-10 Start: 10/13/22 14:01:00 EST Start Date: 10/13/22 Status: Ordered Fish Oil oral capsule Start: 10/13/22 14:01:00 EST Start Date: 10/13/22 Status: Ordered levothyroxine Start: 10/13/22 14:00:00 EST Start Date: 10/13/22 Status: Ordered lutein Start: 10/13/22 14:01:00 EST Start Date: 10/13/22 Status: Ordered meloxicam Start: 10/13/22 14:01:00 EST Start Date: 10/13/22 Status: Ordered multivitamin Start: 10/13/22 14:02:00 EST, 1 tab, PO, Daily Start Date: 10/13/22 Status: Ordered omeprazole Start: 10/13/22 14:00:00 EST Start Date: 10/13/22 Status: Ordered pravastatin Start: 10/13/22 14:00:00 EST Start Date: 10/13/22 Status: Ordered Probiotic Formula Start: 10/13/22 14:01:00 EST Start Date: 10/13/22 Status: Ordered Tylenol Arthritis Caplet Start: 10/13/22 14:01:00 EST Start Date: 10/13/22 Status: Ordered Vitamin D3 Start: 10/13/22 14:02:00 EST Start Date: 10/13/22 Status: Ordered Mental Status 12/16/23 Barriers to Learning one year None evide nt Mandatory Health Literacy Documentation Yes Health Literacy Communication Barriers N ever Primary Language Moroccan Problem List Condition Confirmation Course Effective Dates Status H ealth Status Informant Low back pain Confirmed Active Osteoarthritis of left hip Confirmed Active Pre-op testing Confirmed Active Diagnosis Diagnosis Type Effective Dates Health Status Clinical Service Informant Pre-op testing Discharge Diagnosis 12/16/23 Osteoarthritis of left hip Discharge Diagnosis 12/16/23 Procedures Procedure Date Related Diagnosis Body Site Status CE - Cataract extraction - bilateral Completed section x 2 Comp leted Knee replacement - left C ompleted Vital Signs Most recent to oldest [Reference Range]: 1 Height 171 cm (12/16/23 10:10 AM) Patient Weight 74.2 kg (12/16/23 10:10 AM) Body Mass Index 25.38 kg/m2 (12/16/23 10:10 AM) Temperature [36.5-37.9 DegC] 36.0 DegC *LOW* (12/16/23 10:10 AM) Respiratory Rate 20 br/min (12/16/23 10:10 AM) Blood Pressure 114/70mmHg (12/16/23 10:10 AM) Cuff Pulse Pressure 44 mmHg (12/16/23 10:10 AM) Social History Social History Type Response Smoking Status Never smoked cigaret maday Sex Female Pre-OP H & P * KEREN Jefferson Dennis: PERFORM Event Display: Pre-OP H & P Authored Date: [id number] PRE-OPERATIVE HISTORY AND PHYSICAL Name: FUNMILAYO MAN Patient Number: [id number] : 1950 Date of Service: 12/16/2023 PRE-OP Diagnosis: Left hip osteoarthritis Planned Procedure: Left total hip arthroplasty Chief Complaint: Left hip pain History of Present Illness (including history relevant to procedure): This 73-year-old female presents the clinic today for preoperative history and physical. Patient states that she had her right hip replaced by Dr. Cailin ortega in March 2023. She states that she has had significant left hip pain since . She states she is unable to sleep comfortably due to the pain. She takes Celebrex on a daily basis. She states that she has had 2 corticosteroid injections with only mild relief of her pain. She states she was recently switched to meloxicam and has been using [id number]-vln-[id number] extra strength Tylenol. She states that she is starting to notice a significant gait disturbance and referred pain to her left knee which was previously replaced. Patient is likely to proceed with surgical intervention at this time. Review Of Systems: A 12 point review of systems is performed and is unremarkable except for those things stated in the HPI and past medical history. Past Medical History: Problems: Pre-op testing Osteoarthritis of left hip Low back pain Sleep apnea Hypercholesterolemia Hypothyroidism GERD Procedure History Procedure Procedure Date Comments Knee replacement - left CE - Cataract extraction - bilateral section x 2 Right total hip arthroplasty Allergies and Sensitivities: clindamycin(chest tightness) Current Home Meds: (Last Updated 12/15 10:09) acetaminophen (Tylenol Arthritis Caplet) bifidobacterium-lactobacillus (Probiotic Formula) calcium acetate cholecalciferol (Vitamin D3) levothyroxine lutein meloxicam multivitamin 1 tab PO Daily omega-3 polyunsaturated fatty acids (Fish Oil oral capsule) omeprazole pravastatin ubiquinone (Co Q-10) Vitals: Last Updated 12/16/23 10:10 Weights: Last Updated 12/16/23 10:10 Date Temp Pulse BP RR SpO2 FIO2 Date Wt(kg) Wt(lb) 12/15 10:10 36.0 114/70 20 98 12/15 10:10 74.2 163 12/15 10:10 74.2 163 24 Hr Tmax: 36.0 at 12/15 10:10 Initial Wt: 12/15 74.2 kg 163 lb Physical Exam: (relevant to the procedure, including heart and lung evaluation) General: Alert and oriented x 3 with proper grooming and hygiene Eyes: Pupils are equal reactive to light with accommodation. Extraocular movements are intact Throat: Posterior oropharynx is clear with absence of edema, erythema or exudate. Dentition is appropriate Cardiac: Regular rate and rhythm with no murmurs or gallops appreciated Lungs: Clear to auscultation throughout with no wheezing, rales or rhonchi Abdomen: Mildly obese, nondistended, nontender with NABS Extremities: Left hip; flexion is limited to 115 degrees, internal rotation to 5 degrees and external rotation to 30 degrees. Logroll tests positive. Stinchfield test positive. Straight leg raise test positive. Scour and impingement tests are both positive. Patient experiences tenderness to palpation over her groin. Neuro: Cranial nerves II through XII are intact no motor or sensory deficit Skin: Normal in appearance with no open skin areas or discharge Studies (relevant to the procedure): I obtained and personally interpreted AP pelvis, false profile, and crosstable lateral views of the left hip which shows severe joint space narrowing, central pattern arthritis which is unchanged from films done prior. Plan: Patient is scheduled to undergo this procedure at the [facility] with a 23-hour observation admission with Dr. Simeon on December. Risks and complications of the procedure such as: Infection, bleeding, pain, scarring, nerve blood vessel damage, weakness, wound problems, stiffness, incomplete relief of symptoms, hardware failure, hardware loosening, wear, fracture, tendon or ligament injury, dislocation, leg length inequality, blood clots, Embolism, heart attack, stroke and were explained to the patient at her visit today. Informed consent to perform the procedure was obtained. Patient also understands risks of proceeding with surgical interve ntion during the COVID-19 pandemic. Currently she is asymptomatic and has not been in contact with anyone positive for the virus recently. Patient will need to obtain updated CBC with differential, complete metabolic panel, PT/INR, urinalysis, urine culture and sensitivity, and a nasal culture for MRSA. Patient's EKG and blood type and screen are all up-to-date. Patient will also need preoperative medical clearance from their primary care provider Cheyanne James. She has this appointment scheduledfor December 21 at 9:20 AM. Patient states that she plans on doing in-home physical therapy for the first 1 to 2 weeks postoperatively with [facility]. Patient states that she will most likely elect to do outpatient physical therapy at [facility]. Patient has a walker, raised toilet seat, shower chair and a hip kit. During today's visit we reviewed the total hip packet as well asprecautions. We discussed discharge planning from the hospital. We discussed lectures offered by [facility] in regards to joint replacement surgery via Zoom. Patient states that shetook part in this before her right total hip arthroplasty and does not feel that she needs to partake in again. I advised the patient that upon discharge from hospital we will prescribe a narcotic pain medication and anti-inflammatory. Patient will also be on an 81 mg aspirin twice daily for blood clot prevention. Patient will be scheduled for 2-week postoperative follow-up visit with myself on January 12. This chart was completed utilizing EasyPost voice recognition software. Grammatical errors,random word insertions, pronoun errors, and in complete sentences are an occasional consequence of the system. Any questions or concerns about the content, text, or information contained within the body of this dictation should be addressed directly to the physician for clarification. Electronic Signature on File CC: NICHOLAS Gonzales [address] [place] [id number] * Electronically Reviewed/Signed by: Lm Jefferson PA-C Author Signature Dt/Tm:12/16/2023 04:45 PM Division of Sports Medicine Electronically Reviewed/Signed by: Chacho Simeon MD Cosigner Signature Dt/Tm: 12/18/2023 07:19AM Division of Sports Medicine DC Patient Care team information Care Team Personnel Name: DO Lang Laura M Position: Referring DIRECT Member Role: Primary Care Provider Address: Address: [address] [place] [address] [place] Care Team Related Persons Name: JERILYNVINCE LULI Address: home [address] [place] [address], [place] [phone]
[2024-01-01 07:39] LABS: Basophils # (auto) 0.01 K/uL (0.00-0.20); Basophils % (auto) 0.1 %; Eosinophils # (auto) 0.01 K/uL (0.00-0.50); Eosinophils % (auto) 0.1 %; Hematocrit (blood only) 29.3 % (37.0-47.0); Hemoglobin 10.4 g/dl (12.0-16.0); Immature Granulocytes # (auto) 0.05 K/uL (0.01-0.20); Immature Granulocytes % (auto) 0.4 %; Lymphocytes # (auto) 1.02 K/uL (1.20-3.40); Lymphocytes % (auto) 8.5 %; Mean Corpuscular Hemoglobin 32.6 pg (25.0-34.0); Mean Corpuscular Hgb Conc 35.5 g/dL (32.0-36.0); Mean Corpuscular Volume 91.8 fL (80.0-100.0); Mean Platelet Volume 9.7 fL (9.4-12.4); Monocytes # (auto) 1.14 K/uL (0.11-0.59); Monocytes % (auto) 9.5 %; Neutrophils # (auto) 9.79 K/uL (1.40-6.50); Neutrophils % (auto) 81.4 %; Platelet Count 150 K/uL (130-400); RDW Coefficient of Variation 11.2 % (11.5-14.5); RDW Standard Deviation 37.8 fL (36.4-46.3); Red Blood Count 3.19 M/uL (4.20-5.40); White Blood Count 12.02 K/ul (4.8-10.8)
[2024-01-01 07:58] LABS: BUN Creatinine Ratio 23.5 (10-20); Calcium 8.3 mg/dl (8.6-10.3); Creatinine Clr Calc Pharmacy 73.8 ml/min; Potassium 4.1 mmol/L (3.5-5.1)
--- NOTE | 2024-01-01 09:58 | Orthopedic Progress Note ---
Date of Service January 01, 2024 Assessment & Plan (1) S/P total hip arthroplasty: Plan Patient is postop day 1 status post a left total hip arthroplasty doing great Patient will continue to be weightbearing as tolerated with walker maintaining hip precautions, patient is able to verbalize these correctly She will continue with the hip abduction pillow while supine in bed for 6 weeks She will take an 81 mg aspirin twice a day for DVT prophylaxis She will continue with home meloxicam prescription taken as prescribed PDMP was queried no red flags prescription of oxycodone was provided and sent to patient's requested pharmacy. She was advised on dosage, side effects and risk with medication Advised on pacing herself and utilizing ice over the hip x 15 to 20 minutes as needed with a towel layer. She will participate in home therapy upon discharge She was advised on keeping the incision dry. Patient has all adaptive equipment and walker at home. She will follow-up in our outpatient office as scheduled on 01/13/2024 All questions were answered to patient's satisfaction Admission and Anticipated Discharge Date Admission Date: December 31, 2023 Subjective Patient is a 73-year-old female who is in a patient Dr. Pierre off. She is postop day 1 status post a left total hip arthroplasty. She was seen bedside this morning sitting up in her bedside chair. She is in good spirits alert and oriented. She states she did okay throughout the night and reported her pain to be 5/10. She states she is feeling better than when she had prior to the annette radha. She denies any nausea in the leg. She denies any calf pain, chest pain shortness of breath or dizziness. She states she feels she is able to go home. She states she was able to participate with physical therapy and did well. She does report having a walker, raised toilet seat and a hip kit from her previous surgery of the right hip when she had done in March 2023. She offers no concerns . Review of Systems Review of Systems: Please refer to HPI Physical Exam Physical Exam: General: Patient is alert and oriented x 3 good spirits pleasant and conversive. Sitting upright in bedside chair Integumentary/musculoskeletal: Dressing is intact negative for any soiling on outer dressing. Outer dressing was removed. Silverlon has dried drainage over the proximal area. This was removed keep and Zipline intact. Negative for any active bleeding or drainage. Negative for any erythema or fluctuance surrounding the incision. New Silverlon was applied over Zipline. Patient returned to seated position her sensation is intact over the left lower extremity. She is able to actively extend the knee flex hip and tolerates internal and external rotation of the hip. She is able to actively dorsiflex and plantarflex. Her calf is soft and nontender. Negative Homans' sign dorsal pedis pulses 2+. Results & Data Vital Signs (Past 12 Hours) Vital Signs Temp Pulse Resp BP BP Pulse Ox O2 Del Method 01/01/24 07:00 36.7 C 66 16 111/65 96 Room Air 01/01/24 03:22 36.6 C 59 L 16 107/64 96 Room Air 12/31/23 22:45 82 95 Room Air 12/31/23 22:00 36.8 C 66 16 100/60 95 Room Air Laboratory Results 01/01/24 Range/Units 07:16 WBC 12.02 H (4.8-10.8) K/ul RBC 3.19 L (4.20-5.40) M/uL Hgb 10.4 L (12.0-16.0) g/dl Hct 29.3 L (37.0-47.0) % MCV 91.8 (80.0-100.0) fL MCH 32.6 (25.0-34.0) pg MCHC 35.5 (32.0-36.0) g/dL RDW Std Deviation 37.8 (36.4-46.3) fL RDW Coeff of Serafin 11.2 L (11.5-14.5) % Plt Count 150 (130-400) K/uL MPV 9.7 (9.4-12.4) fL Immature Gran % (Auto) 0.4 % Neut % (Auto) 81.4 % Lymph % (Auto) 8.5 % Hubbard % (Auto) 9.5 % Eos % (Auto) 0.1 % Baso % (Auto) 0.1 % Neut # (Auto) 9.79 H (1.40-6.50) K/uL Lymph # (Auto) 1.02 L (1.20-3.40) K/uL Hubbard # (Auto) 1.14 H (0.11-0.59) K/uL Eos # (Auto) 0.01 (0.00-0.50) K/uL Baso # (Auto) 0.01 (0.00-0.20) K/uL Immature Gran # (Auto) 0.05 (0.01-0.20) K/uL Sodium 137 (136-145) mmol/L Potassium 4.1 (3.5-5.1) mmol/L Chloride 107 (98-107) mmol/L Carbon Dioxide 25 (21-32) mmol/L Anion Gap 5 (3-11) BUN 16 (6-23) mg/dl Creatinine 0.68 (0.6-1.2) mg/dl Est Cr Clr Drug Dosing 73.8 ml/min Est GFR ( Amer) 102.0 ml/min Est GFR (Non-Af Amer) 88.0 ml/min BUN/Creatinine Ratio 23.5 H (10-20) Glucose 100 H (70-99(Fasting)) mg/dl Calcium 8.3 L (8.6-10.3) mg/dl Diagnostic Findings Hip/Pelvis X-Ray 12/31/23 08:50 XR hip 1V LT w pelvis HISTORY: 73 years-old Female IN PACU - Post Surgical left hip arthroplasty COMPARISON: 10/06/2023 TECHNIQUE: AP view the pelvis with crosstable lateral view of the left hip FINDINGS: Unremarkable right hip arthroplasty. The left hip arthroplasty is also unremarkable with adjacent expected postoperative soft tissue swelling and deep tissue air. No acute fracture or unexpected opaque foreign body. IMPRESSION: Left hip arthroplasty with expected postoperative changes. ACT 112: Negative or not required by law. The above report was generated using voice recognition software. It may contain grammatical, syntax or spelling errors. Electronically signed by: Ryder Small M.D. 12/31/2023 9:55 AM
--- NOTE | 2024-01-01 10:24 | Discharge Summary ---
Date of Service January 01, 2024 Admission HPI Per Admitting Provider History of Present Illness (including history relevant to procedure): This 73-year-old female presents the clinic today for preoperative history and physical. Patient states that she had her right hip replaced by Dr. Simeon back in March 2023. She states that she has had significant left hip pain since . She states she is unable to sleep comfortably due to the pain. She takes Celebrex on a daily basis. She states that she has had 2 corticosteroid injections with only mild relief of her pain. She states she was recently switched to meloxicam and has been using sidz-[id number]-[id number] extra strength Tylenol. She states that she is starting to notice a significant gait disturbance and referred pain to her left knee which was previously replaced. Patient is likely to proceed with surgical intervention at this time. Review Of Systems: A 12 point review of systems is performed and is unremarkable except for those things stated in the HPI and past medical history. Past Medical History: Problems: Pre-op testing Osteoarthritis of left hip Low back pain Sleep apnea Hypercholesterolemia Hypothyroidism GERD Procedure History Procedure Procedure Date Comments Knee replacement - left CE - Cataract extraction - bilateral section x 2 Right total hip arthroplasty Allergies and Sensitivities: clindamycin(chest tightness) Current Home Meds: (Last Updated 12/15 10:09) acetaminophen (Tylenol Arthritis Caplet) bifidobacterium-lactobacillus (Probiotic Formula) calcium acetate cholecalciferol (Vitamin D3) levothyroxine lutein meloxicam multivitamin 1 tab PO Daily omega-3 polyunsaturated fatty acids (Fish Oil oral capsule) omeprazole pravastatin ubiquinone (Co Q-10) [facility] Results WBC 12.02 K/ul (4.8-10.8) H 01/01/24 07:16 RBC 3.19 M/uL (4.20-5.40) L 01/01/24 07:16 Hgb 10.4 g/dl (12.0-16.0) L 01/01/24 07:16 Hct 29.3 % (37.0-47.0) L 01/01/24 07:16 MCV 91.8 fL (80.0-100.0) 01/01/24 07:16 MCH 32.6 pg (25.0-34.0) 01/01/24 07:16 MCHC 35.5 g/dL (32.0-36.0) 01/01/24 07:16 RDW Std Deviation 37.8 fL (36.4-46.3) 01/01/24 07:16 RDW Coeff of Serafin 11.2 % (11.5-14.5) L 01/01/24 07:16 Plt Count 150 K/uL (130-400) 01/01/24 07:16 MPV 9.7 fL (9.4-12.4) 01/01/24 07:16 Immature Gran % (Auto) 0.4 % 01/01/24 07:16 Neut % (Auto) 81.4 % 01/01/24 07:16 Lymph % (Auto) 8.5 % 01/01/24 07:16 [place] % (Auto) 9.5 % 01/01/24 07:16 Eos % (Auto) 0.1 % 01/01/24 07:16 Baso % (Auto) 0.1 % 01/01/24 07:16 Neut # (Auto) 9.79 K/uL (1.40-6.50) H 01/01/24 07:16 Lymph # (Auto) 1.02 K/uL (1.20-3.40) L 01/01/24 07:16 [place] # (Auto) 1.14 K/uL (0.11-0.59) H 01/01/24 07:16 Eos # (Auto) 0.01 K/uL (0.00-0.50) 01/01/24 07:16 Baso # (Auto) 0.01 K/uL (0.00-0.20) 01/01/24 07:16 Immature Gran # (Auto) 0.05 K/uL (0.01-0.20) 01/01/24 07:16 Sodium 137 mmol/L (136-145) 01/01/24 07:16 Potassium 4.1 mmol/L (3.5-5.1) 01/01/24 07:16 Chloride 107 mmol/L (98-107) 01/01/24 07:16 Carbon Dioxide 25 mmol/L (21-32) 01/01/24 07:16 Anion Gap 5 (3-11) 01/01/24 07:16 BUN 16 mg/dl (6-23) 01/01/24 07:16 Creatinine 0.68 mg/dl (0.6-1.2) 01/01/24 07:16 Est Cr Clr Drug Dosing 73.8 ml/min 01/01/24 07:16 Est GFR ( Amer) 102.0 ml/min 01/01/24 07:16 Est GFR (Non-Af Amer) 88.0 ml/min 01/01/24 07:16 BUN/Creatinine Ratio 23.5 (10-20) H 01/01/24 07:16 Glucose 100 mg/dl (70-99(Fasting)) H 01/01/24 07:16 Calcium 8.3 mg/dl (8.6-10.3) L 01/01/24 07:16 Blood Type A Negative 12/31/23 05:29 Antibody Screen NEGATIVE 12/31/23 05:29 Impressions Hip/Pelvis X-Ray 12/31/23 08:50 XR hip 1V LT w pelvis HISTORY: 73 years-old Female IN PACU - Post Surgical left hip arthroplasty COMPARISON: 10/06/2023 TECHNIQUE: AP view the pelvis with crosstable lateral view of the left hip FINDINGS: Unremarkable right hip arthroplasty. The left hip arthroplasty is also unremarkable with adjacent expected postoperative soft tissue swelling and deep tissue air. No acute fracture or unexpected opaque foreign body. IMPRESSION: Left hip arthroplasty with expected postoperative changes. ACT 112: Negative or not required by law. The above report was generated using voice recognition software. It may contain grammatical, syntax or spelling errors. Electronically signed by: Ryder Small M.D. 12/31/2023 9:55 AM Discharge Data Procedures Performed Operation Date: 12/31/23 07:00 Actual Procedures p Left Total Hip Arthroplasty(Left) - Chacho Simeon MD Hospital Course (1) S/P total hip arthroplasty: Plan Patient has done well postoperatively since having the left total hip arthroplasty on 12/31/2023. She had an uneventful stay at [facility]. Patient is postop day 1 status post a left total hip arthroplasty doing great Patient will continue to be weightbearing as tolerated with walker maintaining hip precautions, patient is able to verbalize these correctly She will continue with the hip abduction pillow while supine in bed for 6 weeks She will take an 81 mg aspirin twice a day for DVT prophylaxis She will continue with home meloxicam prescription taken as prescribed PDMP was queried no red flags prescription of oxycodone was provided and sent to patient's requested pharmacy. She was advised on dosage, side effects and risk with medication Advised on pacing herself and utilizing ice over the hip x 15 to 20 minutes as needed with a towel layer. She will participate in home therapy upon discharge She was advised on keeping the incision dry. Patient has all adaptive equipment and walker at home. She will follow-up in our outpatient office as scheduled on 01/13/2024 All questions were answered to patient's satisfaction
--- OUTSIDE RECORDS SUMMARY | 2024-01-02 08:56 | External Medical Summary | Summary of Care ---
Author Name Unknown Organization [facility] Address [address] [place] [address] Phone [phone] Care Team Providers Care Sales Applications Engineer Name Role Phone Cris Lang DO Primary Care Provider [phone] Encounter Details Date Type Department Care Team (Late st Contact Info) Description 12/31/2023 Orders Only Family Practice [facility] [address] [place] [id number] Cris Lang DO [address] [facility] [place] [address] Allergies Active Allergy Reactions Criticality Noted Date Comments Clindamycin 03/08/2012 Chest squeezing x 3 days Morphine And Related Nausea/vomiting 03/26/2005 Pt also has extreme sweating. documented as of this encounter (statuses as of 12/31/2023) Medications Medication Sig Dispensed Refills Start Date [...] as of this encounter (statuses as of 12/31/2023) Active Problems Problem Noted Date Diagnosed Date [...] as of this encounter (statuses as of 12/31/2023) Resolved Problems Problem Noted Date Diagnosed Date Resolved Date Hepatic steatosis 06/02/2012 07/11/2015 Dyslipidemia, goal to be determined 08/16/2009 11/09/2009 Overview: Per Lipid Taxonomy. Dyslipidemia, goal LDL below 160 06/07/2007 08/16/2009 Overview: Per Lipid Taxonomy. TUBULAR ADENOMA OF COLON 07/29/2004 Viral warts 09/14/2000 12/28/2000 Overview: ICD-10 update of inactive term documented as of this encounter (statuses as of 12/31/2023) Immunizations Name Administration Dates Next Due COVID-19 [...] (15 years old or older) No 03/25/20 Cognitive Status Response Date of Assessm ent Because of a physical, menta l, or emotional condition, do you have serious difficulty concentrating, remembering, or making decisions? (5 years old or older) No 03/25/2021 documented as of this encounter Plan of Treatment Upcoming Encounters Date Type Department Care Team (Late st Contact Info) Description 01/29/2024 11:00 AM EDT Imaging Radiology [address] [place] [address] 02/02/2024 11:00 AM EDT Office Visit Cardiology, [facility] [address] [place] [address] [address] Cas Choudhary, DO [address] [address] 03/23/2024 5:40 PM EDT Office Visit Family Practice [facility] [address] [address] [address] Cris Lang, DO [address] [place] [address] [address] 09/15/2024 1:20 PM EST Office Visit Dermatology [facility] [address] [place] [address] Roxanna Owusu PA-C [address] [facility] [place] [phone] Scheduled Procedures Name Priority Associated Diagnoses Date/Ti [...] this encounter Medical Devices Implanted Type Area Field Operations Coordinator Device Identifier Shelf Expiration Date Model / Serial / Lot Lens 17.0 Mx60e - [id number] - [id number] Implanted:Qty: 1 on 11/17/2019 by Bonilla Stephenson MD at OR [facility] Left: Eye [employer]OM[employer] 04/06/2022 [id number]-86.0 / [id number] / [id number] Lens 17.0 Mx60e - [id number] - [id number] Implanted:Qty: 1 on 11/28/2019 by Bonilla Stephenson MD at OR [facility] Right: Eye [employer]OM[employer] 08/06/2022 [id number]-95.0 / [id number] / [id number] Patella Symmetric S33mm 9mm - [id number] Implanted:Qty: 1 on 03/25/2021 by Esdras Esparza DO at OR [facility] Left: Knee [employer] : ORTH[employer]AED[employer] 01/01/2026 [id number] / / [id number] Baseplate #4 Tritanium - [id number] Implanted:Qty: 1 on 03/25/2021 by Esdras Esparza DO at OR [facility] Left: Knee [employer] : ORTH[employer] 12/03/2025 [id number] / / [id number] Knee Triathlon Bead No Salvador L 5 - [id number] Implanted:Qty: 1 on 03/25/2021 by Esdras Esparza DO at OR [facility] Left: Knee [employer] : ORTHOPAEDICS 12/16/2025 [id number] / / [id number] Knee X3 Ins Pos Cs Sz4 9 - [id number] Implanted:Qty: 1 on 03/25/2021 by Esdras Esparza DO at OR [facility] Left: Knee [employer] : ORTHOPAEDICS 12/27/2025 [id number] / / [id number] documented as of this encounter Procedures Procedure Name Priority Date/Time Associated Diagnosis Comments CHEMISTRY-OUTSIDE Routine 12/16/2023 documented in this encounter Results * CHEMISTRY-OUTSIDE (12/16/2023) Not all results display below - see scan for full detail OUTSIDE LAB (SEE SCANNED REPORT) Comment:SEE SCAN - CBCD, CMP , UA CREATININE-OUTSID E LAB 0.64 0.6 - 1.2 MG/DL OUTSIDE LAB (SEE SCANNED REPORT) EGFR-OUTSIDE LAB 89.9 ML/MIN OUT SIDE LAB (SEE SCANNED REPORT) POTASSIUM-OUTSIDE LAB 4.7 3.5 - 5.1 MMOL/L OUTSIDE LAB (SEE SCANNED REPORT) GLUCOSE-OUTSIDE LAB 86 70 - 99 MG/DL OUTSIDE LAB (SEE SCANNED REPORT) HOURS FASTING OUTSID E LAB (SEE SCANNED REPORT) TRIGLYCERIDES-OUT SIDE LAB OUTSIDE LAB (SEE SCANNED REPORT) CHOLESTEROL-OUTSI DE LAB OUTSIDE LAB (SEE SCANNED REPORT) HDL-OUTSIDE LAB OUTS DIMPLE LAB (SEE SCANNED REPORT) CHOL/HDL RATIO-OUTSIDE LAB OUTSIDE LA B (SEE SCANNED REPORT) LDL (CALCULATED)-OUTS DIMPLE LAB OUTSIDE LAB (SEE SCANNED REPORT) LDL (DIRECT MEASURE)-OUTSIDE LAB OUTSIDE LAB (SEE SCANNED REPORT) HEMOGLOBIN, [id number] LAB OUTSIDE LAB (SEE SCANNED REPORT) PHOSPHORUS-OUTSID E LAB OUTSIDE LAB (SEE SCANNED REPORT) PTH-OUTSIDE LAB OUTS DIMPLE LAB (SEE SCANNED REPORT) MICROALBUMIN RATIO-OUTSIDE LAB OUTSIDE LA B (SEE SCANNED REPORT) PROTEIN, UA-OUTSIDE LAB OUTSIDE LAB (SEE SCANNED REPORT) HGB 13.3 12.0 - 16.0 G/DL OUTSIDE LAB (SEE SCANNED REPORT) 12/16/2023 Lm Jefferson PA-C LABORATORY OUTSIDE LAB (SEE SCANNED REPORT) documented in this encounter Advance Directives Latest [...] the patient have Health Care Power of Communication Equipment Repairer? Yes, not currently available Care Teams Sales Applications Engineer Relationship Specialty Start Date End Date Cris Lang DO [address] [place] [address] PCP - General Family Medicine 09/22/16 documented as of this encounter
== END 2024-01-01 11:37 | disposition home health service (06) ==
LOC: 3N 05:11 → ASU 05:11